=== PATIENT | male | born 1985 | race Caucasian/White ===

== ENCOUNTER 2019-06-05 23:48 | Emergency (ER) | payer SELFPAY ==
[2019-06-05 23:49] VITALS: BMI 28.3
--- NOTE | 2019-06-05 23:51 | PC.NURSE ---
PATIENT STATES HE SHOT UP SOME HEROIN TONIGHT. PATIENT STATES HE HAS USED HEROIN BEFORE BUT NOT FOR A LONG TIME. PATIENT STATES THAT THE LAST THING HE REMEMBERS IS DOING SOMETHING HE SHOULD NOT HAVE BEEN DOING .
[2019-06-05 23:54] VITALS: BP 143/102; PULSE 106; RESP 20; TEMP 36.3; O2SAT 92
--- NOTE | 2019-06-05 23:54 | ECG_ITS ---
Measurements Intervals [place] Rate: 86 P: 54 WV: 163 QRS: 79 QRSD: 114 T: 38 QT: 347 QTc: 416 SINUS RHYTHM INCOMPLETE RIGHT BUNDLE BRANCH BLOCK NONSPECIFIC T-WAVE ABNORMALITY No previous ECG available for comparison Electronically Signed On 06-06-2019 10:29:08 CDT by Kristan Houston M.D. [id number]
--- NOTE | 2019-06-05 23:54 | ED_ITS ---
HPI - Overdose General: Chief Complaint: Overdose Stated Complaint: Heroin OD Time Seen by Provider: 06/05/19 23:49 Source: patient Mode of arrival: ambulatory Limitations: no limitations History of Present Illness: HPI Narrative: Patient comes in for accidental overdose with the use of heroin. Patient reports he had not used heroin in many years and had used tonight. Patient denies being suicidal. Patient was found in a nontoxic state with shallow slow respirations. Police Department had administered 8 mg of naloxone. When EMS got there patient was starting to arouse and having increased in respirations and alertness. Patient is alert and responsive in the emergency department. Patient denies any pain at this time, patient appears unwell. Review of Systems General: Reports: 10 or more systems reviewed and unremarkable except in HPI and below Resp: Reports: shortness of breath (hypoxic) [facility] ED PFSH: Social History Smoking and tobacco status: current every day smoker Physical Exam Const: COMMON NORMALS: no apparent distress and oriented x3 GENERAL APPEARANCE: cooperative HENMT: COMMON NORMALS: normocephalic, external ears normal, EAC's normal, TM's normal bilaterally and external nose normal HEAD & SCALP: normal to inspection and normocephalic FACE & SINUS: normal facial exam NOSE: external nose normal GENERAL EAR: hearing not grossly impaired EXTERNAL E AR: Yes external ears normal EXTERNAL AUDITORY CANAL: EAC's normal TYMPANIC MEMBRANE: TM's normal bilaterally MOUTH: oral and palatal mucosa normal THROAT: posterior oropharynx normal Eye: COMMON NORMALS: PERRL and EOMs intact bilaterally PUPIL: Yes PERRL Neck/C-Spine: COMMON NORMALS: full ROM and no lymphadenopathy Lymph: LYMPHATIC: no lymphedema noted Chest: COMMONS NORMALS: inspection of chest normal and palpation of chest normal Resp: COMMON NORMALS: normal respiratory effort and clear to auscultation bilaterally AUSCULTATION: clear to auscultation bilaterally Cardio: COMMON NORMALS: regular rate and regular rhythm RATE: regular rate RHYTHM: regular rhythm GI: COMMON NORMALS: normal to inspection, nondistended, normoactive bowel joanna nds and non-tender : COMMON NORMALS: Yes no CVA tenderness BLADDER/KIDNEY EXAM: Yes no CVA tenderness Back/Pelvis: COMMON NORMALS: no CVA tenderness and thoracic and lumbar spine normal to inspection Extremity: COMMON NORMALS: normal to inspection GENERAL: No edema Neuro: COMMON NORMALS: oriented x3, moves all extremities and no focal motor deficits Psych: COMMON NORMALS: mental status grossly normal and cooperative Skin: COMMON NORMALS: no rashes or lesions noted GENERAL SKIN EXAM: no rashes or lesions noted Course ED course: 9, reviewed xray with Dr. Machado relating left upper lung vascular congestion. Agreed with concerns, will continue to monitor and consider further treatment. wjw 0120, patient resting well, does get mildly hypoxic after getting up to restroom, but rebounds well. Dr. Machado had talked to Dr. Casillas and we will monitor in the ER for a while with plans to discharge if patient continues to improve. wjw 0245, patient more alert, ambulating without pulse oxygen staying above 94 percent. Patient reports feeling well. wjw Vital Signs: Vital signs: Vital Signs Temperature 97.4 F L 06/05/19 23:54 Pulse Rate 101 H 06/06/19 02:14 Respiratory Rate 15 06/06/19 02:14 Blood Pressure 136/74 06/06/19 02:14 Pulse Oximetry 95 06/06/19 02:14 MDM - Overdose MDM Narrative: Medical decision making narrative: Patient was brought in by EMS for drug overdose. Patient was found by family member and Police Department was notified along with EMS. Police Department arrived first on scene and delivered 2 doses of naloxone at 4 mg apiece. On arrival to the emergency department exam noted alert individual with wet clothes due to diaphoresis. Respirations were even. Patient was hypoxic at 88% on room air. Lung sounds are decreased. Heart rate was regular. Vital signs otherwise were normal. Differential diagnosis includes drug overdose intentional versus accidental, pulmonary edema, aspiration pneumonia. First chest x-ray noted some pulmonary edema. Laboratory values noted creatinine 1.4. Patient was monitored for 3 hours showing improvement in aeration of lung vu on repeat chest x-ray. Patient had increasing activity and pulse oxygen staying above 94% on room air with activity. Patient reported feeling well and was comfortable to go home. Recommended follow-up for evaluation in 1 week, or return to the ER for high fever or increasing shortness of breath. Patient reported understanding and agreed to plan. Lab Data: Labs: Lab Results 06/05/19 06/05/19 06/06/19 Range/Units 23:59 23:59 01:15 WBC 8.6 (4.0-10.0) 10^3/ uL RBC 5.50 H (4.1-5.3) 10^6/u L Hgb 16.6 (11.7-16.6) g/dL Hct 49.6 (42.0-52.0) % MCV 90.2 (80-94) fL MCH 30.2 (28.0-34.0) pg MCHC 33.5 (30.0-36.0) g/dL RDW 12.6 (12.1-15.1) % Plt Count 202 (130-400) 10^3/c mm MPV 8.5 (7.4-10.4) fL Neut % (Auto) 57.6 % Lymph % (Auto) 34.5 % [place] % (Auto) 5.6 % Eos % (Auto) 1.6 % Baso % (Auto) 0.5 % Neut # (Auto) 4.9 (1.8-7.7) 10^3/u L Lymph # (Auto) 3.0 (0.8-4.8) 10^3/u L [place] # (Auto) 0.5 (0.2-0.9) 10^3/u L Eos # (Auto) 0.1 (0.0-0.8) 10^3/u L Baso # (Auto) 0.0 (0.0-0.1) 10^3/u L Nucleated RBC % (a uto) 0 % Nucleated RBCs # 0.0 /100WBC Sodium 136 (136-145) mmol/L Potassium 4.2 (3.5-5.1) mmol/L Chloride 95 L (98-107) mmol/L Carbon Dioxide 31 H (22-29) mmol/L Anion Gap 14.2 (5-19) BUN 20 (6-20) mg/dL Creatinine 1.4 H (0.7-1.2) mg/dL GFR Calculation 57.3 L (90-130) mL/min Glucose 184 H (65-115) mg/dL Calculated Osmolal ity 283 L (285-295) mOsm/k g Calcium 9.8 (8.5-10.5) mg/dL Total Bilirubin 0.4 (0.15-1.2) mg/dL AST 35 (0-40) U/L ALT 35 (0-41) U/L Alkaline Phosphata se 60 (40-130) IU/L Total Protein 7.5 (6.6-8.7) g/dL Albumin 4.3 (3.5-5.2) g/dL Globulin 3.2 (1.3-4.6) g/dL Salicylates < 0.3 L (3-10) mg/dL Urine Opiates Scre en Negative (Negative) ng/mL Acetaminophen < 5.0 L (10-30) ug/mL Ur Barbiturates Sc reen Negative (Negative) ng/mL Ur Phencyclidine S crn Negative (Negative) ng/mL Ur Amphetamines Sc reen Positive H (Negative) ng/mL U Benzodiazepines Scrn Negative (Negative) ng/mL Urine Cocaine Scre en Negative (Negative) ng/mL U Marijuana (THC) Screen Negative (Negative) ng/mL Ethyl Alcohol < 10 (0-10) mg/dL Imaging Data^: CXR: Attestation: I personally reviewed and interpreted this imaging study as follows: (0010, increased vascular congestion left upper lung) Other Xray: Attestation: I personally reviewed and interpreted this imaging study as follows: (repeat CXR, improved aeration with no significant edema) EKG Data^: EKG 1: Attestation: I personally reviewed and interpreted this EKG as follows: (0024, SR, regular rate and rhythm, 86 bpm, no ST elevation or ectopy. wjw) Discharge Plan Discharge Patient Disposition: Home, Self-Care Clinical Impression: Drug overdose Qualifiers: Encounter type: initial encounter Injury intent: accidental or unintentional Qualified Code(s): T50.901A - Poisoning by unspecified drugs, medicaments and biological substances, accidental (unintentional), initial encounter Condition: Stable Prescriptions: No Action No Known Home Medications RF: 0 Discharge Orders: Discharge Order (Routine); Ordered 06/06/19 Ordered By: Jewel Feliciano Discharge Diet: Usual diet Discharge Activity: Increase activity as tolerated Patient Instructions: Narcotic Abuse (ED) Activity Restrictions/Additional Instructions: Activity as tolerated Healthy diet and exercise Follow-up with primary care Return to ER for high fever or difficulty breathing. Coding Level of Care Code ED Engineering Specialist for Norberto Fwd Exam Comprehensive
--- NOTE | 2019-06-05 23:54 | XR_ITS ---
WS: [id number] Portable AP upright chest, 06/06/2019, 2402 hours Clinical Data: hypoxia Comparison: PA and lateral chest, 08/20/2009. Findings: There is a patchy opacity involving the entire left lung. Minimal opacity in the right hilu m may also be present. Most likely this represents a diffuse viral pneumonia. No nodules, masses or e ffusions are seen. The heart is normal. The pulmonary vascularity is not increased. No pneumothorax i s seen. XR/XR chest 1V portable [id number] Impression: Patchy opacity involving left lung and right hilum which could represent acute pneumonia.
[2019-06-06] VITALS (17 sets, daily range): BP systolic 134–156; BP diastolic 74–96; PULSE 94–111; RESP 15–23; O2SAT 86–99
[2019-06-06] MEDS: sodium chloride 0.9% 1,000 ML 999 ML IV (00:10)
[2019-06-06] MEDS: ondansetron 2 mg/ML SDV 2 mL 4 MG IVP ×2 (00:10→00:35)
[2019-06-06 00:16] LABS: Basophils % 0.5 %; Eosinophils # 0.1 10^3/uL (0.0-0.8); Eosinophils % 1.6 %; Hematocrit 49.6 % (42.0-52.0); Hemoglobin 16.6 g/dL (11.7-16.6); Lymphocytes % 34.5 %; Mean Corpuscular HGB Conc 33.5 g/dL (30.0-36.0); Mean Corpuscular Hemoglobin 30.2 pg (28.0-34.0); Mean Corpuscular Volume 90.2 fL (80-94); Mean Platelet Volume 8.5 fL (7.4-10.4); Monocytes # 0.5 10^3/uL (0.2-0.9); Monocytes % 5.6 %; Neutrophils # 4.9 10^3/uL (1.8-7.7); Neutrophils % 57.6 %; Nucleated Red Blood Cells % 0 %; Platelet Count 202 10^3/cmm (130-400); Red Cell Distribution Width 12.6 % (12.1-15.1); White Blood Count 8.6 10^3/uL (4.0-10.0)
[2019-06-06 00:22] LABS: Alanine Aminotransferase 35 U/L (0-41); Albumin Level 4.3 g/dL (3.5-5.2); Alkaline Phosphatase 60 IU/L (40-130); Anion Gap 14.2 (5-19); Aspartate Amino Transferase 35 U/L (0-40); Blood Urea Nitrogen 20 mg/dL (6-20); Calcium 9.8 mg/dL (8.5-10.5); Carbon Dioxide 31 mmol/L (22-29); Chloride 95 mmol/L (98-107); Globulin 3.2 g/dL (1.3-4.6); Glomerular Filtration Rate 57.3 mL/min (90-130); Glucose 184 mg/dL (65-115); Osmolality Calculated 283 mOsm/kg (285-295); Potassium 4.2 mmol/L (3.5-5.1); Sodium 136 mmol/L (136-145); Total Bilirubin 0.4 mg/dL (0.15-1.2); Total Protein 7.5 g/dL (6.6-8.7)
[2019-06-06 00:35] LABS: Acetaminophen < 5.0 ug/mL (10-30); Alcohol Level < 10 mg/dL (0-10); Salicylate < 0.3 mg/dL (3-10)
[2019-06-06 01:36] LABS: Amphetamines Screen Urine Positive (Negative); Barbiturates Screen Urine Negative (Negative); Benzodiazepines Screen Urine Negative (Negative); Cocaine Screen Urine Negative (Negative); Opiate Screen Urine Negative (Negative); PCP Screen Urine Negative (Negative); THC Screen Urine Negative (Negative)
--- NOTE | 2019-06-06 02:02 | XR_ITS ---
WS: [id number] Portable AP upright chest, 06/06/2019, 0229 hours. Clinical Data: pulmonary edema Comparison: Portable chest, 06/06/2019, 2402 hours Findings: The patchy opacities have partially cleared. The opacities probably did represent unusual p ulmonary edema which can be seen with reaction to chemicals or medications.. No nodules, masses or ef fusions are seen. The heart is normal. XR/XR chest 1V portable [id number] Impression: Partial clearing of patchy opacity of left lung and right hilum.
--- NOTE | 2019-06-06 02:18 | PC.NURSE ---
Patient given water after HCP approval.
[2019-06-06] MEDS: acetaminophen 325 mg Tablet 650 MG PO (02:22)
--- NOTE | 2019-06-06 02:24 | PC.NURSE ---
Patient ambulated to bathroom
== END 2019-06-06 02:54 | disposition home or self-care (01) ==
PROVIDERS: Emergency Provider Nurse Practitioner Family
DX: T40.1X1A Poisoning by heroin, accidental (unintentional), initial encounter (principal); R06.02 Shortness of breath; F17.200 Nicotine dependence, unspecified, uncomplicated
CPT/HCPCS: 12345; 36415; 71045; 80053; 80306; 80307; 85025; 93005; 96360; 96361; 96374; 96375; 99284; J2405; J7030

== ENCOUNTER 2020-08-13 13:34 | Emergency (ER) | payer SELFPAY ==
--- NOTE | 2020-08-13 13:38 | XR_ITS ---
WS: [id number] Portable AP upright chest, 08/13/2020 Clinical Data: dyspnea/cough Comparison: Normal chest, 06/06/2019. Findings: No nodules, masses or effusions are seen. The heart is normal. The pulmonary vascularity is not increased. No pneumonia or pneumothorax is seen. Monitor leads are on the chest wall. XR/XR chest 1V portable [id number] Impression: Negative chest.
--- NOTE | 2020-08-13 13:38 | ECG_ITS ---
[facility] Test Date: 2020-08-13 Pat Name: Baldemar Thomas Department: Room: Gender: Male Sheet Turner: : 1985 Requested By: Scout Alvarado Order Number: [id number] Monika MD: Dequan Vega M.D. Measurements Intervals [place] Rate: 81 P: 47 AL: 151 QRS: 44 QRSD: 108 T: 52 QT: 391 QTc: 455 Interpretive Statements SINUS RHYTHM INCOMPLETE RIGHT BUNDLE BRANCH BLOCK [90+ ms QRS DURATION, TERMINAL R IN V1/V2, 40+ ms S IN I/aVL/V4/V5/V6] Compared to ECG 06/06/2019 00:24:57 T-wave abnormality no longer present Electronically Signed On 08-13-2020 18:40:02 CDT by Dequan Vega M.D. [email or web address] [email or web address] Coast Winerysum[facility].Spine Wave/store/OM/[id number]
[2020-08-13 13:39] VITALS: BP 151/88; PULSE 97; RESP 16; TEMP 36.6; O2SAT 100; BMI 24.4
--- NOTE | 2020-08-13 13:40 | W.ED.SOB ---
HPI - SOB/Dyspnea General: Chief Complaint: Overdose Stated Complaint: OVERDOSE Time Seen by Provider: 08/13/20 13:38 History of Present Illness: HPI Narrative: 35-year-old male brought in by EMS after being found unresponsive and cyanotic. He was given Narcan in the field as well as oxygen supplementation is awake and alert on arrival here. He admits to using fentanyl just prior to EMS picking him up. His father called EMS. He has used IV drugs in the past. He used a fentanyl IV about an hour prior to arrival. He is still somewhat lethargic and a little bit confused but able to answer most questions with brief responses. MD elicited complaint: shortness of breath Pertinent past history: other (Acute respiratory failure secondary to IV drug use) Onset (ago): minute(s) Timing: constant Severity: severe Exacerbating factors: recent new medication (IV fentanyl -self administered) Relieving factors: other (Narcan) Known history of: other (IV drug use) Associated symptoms: Deny abdominal pain, chest congestion, chest pain, cough, diaphoresis, dizziness, extremity pain, fever(s), hemoptysis, lightheadedness, myalgias, nausea, orthopnea, palpitations, paresthesias, polydipsia, polyuria, rash, sense of impending doom, syncope or vomiting Treatment prior to arrival: oxygen and other (Narcan) Review of Systems Const: Denies: fever(s) or diaphoresis ENMT: Denies: throat pain, ear or mastoid pain, nasal discharge or nasal congestion Card: Denies: chest pain, palpitations, lightheadedness, syncope or orthopnea Resp: Denies: hemoptysis or chest congestion GI: Denies: abdominal pain, nausea or vomiting : Denies: flank pain, dysuria, urinary frequency or urinary urgency Musc: Denies: extremity pain Skin/Breast: Denies: rash or pruritus Neuro: Denies: dizziness Endo: Denies: polyuria or polydipsia PFS ED PFSH: Social History Smoking and tobacco status: current every day smoker Physical Exam Const: COMMON NORMALS: no acute distress GENERAL APPEARANCE: cooperative and comfortable ORIENTATION/CONSCIOUSNESS: Yes awake HENMT: COMMON NORMALS: normocephalic, atraumatic, hearing grossly normal bilaterally, external ears normal, EAC's normal, TM's normal bilaterally, Normal nasal mucous membranes and turbinates present, moist oral mucous membranes and oropharynx normal HEAD & SCALP: normocephalic and atraumatic NOSE: Normal nasal mucous membranes and turbinates present EXTERNAL EAR: Yes external ears normal EXTERNAL AUDITORY CANAL: EAC's normal TYMPANIC MEMBRANE: TM's normal bilaterally Neck/C-Spine: COMMON NORMALS: no JVD Resp: COMMON NORMALS: normal respiratory effort, No retractions, No use of accessory muscles and clear to auscultation bilaterally AUSCULTATION: clear to auscultation bilaterally Cardio: COMMON NORMALS: no JVD, regular rate, regular rhythm and No murmurs present (Cardio) RATE: regular rate RHYTHM: regular rhythm GI: COMMON NORMALS: Soft to palpation and No hepatosplenomegaly present AUSCULTATION: Yes normoactive bowel sounds PALPATION: Yes Soft to palpation, No Tenderness to palpation present (GI), No Guarding due to palpation present (GI) and Yes No hepatosplenomegaly present Extremity: COMMON NORMALS: normal to inspection, capillary refill normal, no clubbing, cyanosis or edema, no calf tenderness and no pedal edema Skin: COMMON NORMALS: no rashes or lesions noted GENERAL SKIN EXAM: no rashes or lesions noted Course Vital Signs: Vital signs: Vital Signs Temperature 97.8 F 08/13/20 13:39 Pulse Rate 91 08/13/20 15:34 Respiratory Rate 16 08/13/20 15:34 Blood Pressure 123/71 08/13/20 15:34 Pulse Oximetry 97 08/13/20 15:34 MDM - SOB/Dyspnea MDM Narrative: Medical decision making narrative: Patient recovered and awake after multiple doses of Narcan he wishes to go home he is been up and ambulatory without difficulty his sats are good he no longer needs oxygen support we will discharge him home with Narcan intranasal spray as needed should he use again. Strongly discouraged him from using any IV fentanyl or any unknown drug has not been prescribed to him. Likelihood of compliance is low Lab Data: Labs: Lab Results 08/13/20 08/13/20 08/13/20 Range/Units 13:40 14:07 14:07 WBC 6.4 (4.0-10.0) 10^3/ uL RBC 4.91 (4.1-5.3) 10^6/u L Hgb 13.5 (11.7-16.6) g/dL Hct 42.0 (42.0-52.0) % MCV 85.5 (80-94) fL MCH 27.5 L (28.0-34.0) pg MCHC 32.1 (30.0-36.0) g/dL RDW 13.4 (12.1-15.1) % Plt Count 168 (130-400) 10^3/c mm MPV 8.5 (7.4-10.4) fL Neut % (Auto) 76.9 % Lymph % (Auto) 15.4 % [place] % (Auto) 4.1 % Eos % (Auto) 2.5 % Baso % (Auto) 0.8 % Neut # (Auto) 4.93 (1.8-7.7) 10^3/u L Lymph # (Auto) 1.0 (0.8-4.8) 10^3/u L [place] # (Auto) 0.3 (0.2-0.9) 10^3/u L Eos # (Auto) 0.2 (0.0-0.8) 10^3/u L Baso # (Auto) 0.1 (0.0-0.1) 10^3/u L Nucleated RBC % (a uto) 0 % Nucleated RBCs # 0.0 /100WBC Specimen Type Arterial Sample Site Radial, left ABG pH 7.40 (7.35-7.45) ABG pCO2 46.8 H (35-45) mmHg ABG pO2 60.3 L (80.0-100.0) mmH g ABG HCO3 28.9 H (22-26) mmol/L ABG O2 Saturation 92.9 ABG Base Excess 3.3 H (-2.0-2.0) mmol/ L Sivakumar Test Pos A-a O2 Gradient 4.2 L (5-10) mmHg Hematocrit 41.2 L (42-52) % Hgb O2 Saturation 90.4 L (95-100) % Carboxyhemoglobin 2.0 (0.4-20.1) %THgb Methemoglobin 0.7 (0.4-1.5) % Total Hemoglobin 13.4 L (14-18) g/dL Sodium 139.0 138 (131-143) mmol/L Potassium 3.4 L 3.9 (3.5-5.0) mmol/L Glucose 210.0 H 165 H (70-115) mg/dL Ionized Calcium 1.2 (1.1-1.4) mmol/L O2 Delivery Device Room air FiO2 21.0 % Injection Molding Machine Setter ID Cak Chloride 100 (98-107) mmol/L Carbon Dioxide 30 H (22-29) mmol/L Anion Gap 11.9 (5-19) BUN 17 (6-20) mg/dL Creatinine 0.8 (0.7-1.2) mg/dL GFR Calculation 108.8 (90-130) mL/min Calculated Osmolal ity 291 (285-295) mOsm/k g Calcium 8.8 (8.5-10.5) mg/dL Total Bilirubin 0.3 (0.15-1.2) mg/dL AST 32 (0-40) U/L ALT 49 H (0-41) U/L Alkaline Phosphata se 77 (40-130) IU/L Creatine Kinase 184 (39-308) U/L Total Protein 7.3 (6.6-8.7) g/dL Albumin 3.6 (3.5-5.2) g/dL Globulin 3.7 (1.3-4.6) g/dL Discharge Plan Discharge Patient Disposition: Home Clinical Impression: Drug overdose Condition: Stable Prescriptions: New Narcan 4 mg/actuation spray,non-aerosol 1 spray intranasal Q2M PRN (Reason: opioid overdose) Qty: 2 RF: 0 Discharge Orders: Discharge ED (Routine); Ordered 08/13/20 Ordered By: Scout Blum Patient Instructions: Opioid Safety Activity Restrictions/Additional Instructions: Avoid the use of narcotics at night have not been prescribed by a physician Coding Level of Care Code ED Legal Contracts Specialist for Chg Fwd Exam Comprehensive
[2020-08-13 13:51] LABS: ABG PCO2 46.8 mmHg (35-45); Alveolar-Arterial Oxygen Gradi 4.2 mmHg (5-10); Arterial Blood Gas Hematocrit 41.2 % (42-52); Base Excess ABG 3.3 mmol/L (-2.0-2.0); Blood Gas Allen Test Pos; Blood Gas Operator Identificat CAK; Blood Gas Sample Site Radial, left; Blood Gas Sample Type Arterial; HCO3 ABG 28.9 mmol/L (22-26); HGB O2 Sat 90.4 % (95-100); Ionized Calcium Level - ABG 1.2 mmol/L (1.1-1.4); Methemoglobin 0.7 % (0.4-1.5); Oxygen Device ROOM AIR; Oxygen Saturation ABG 92.9; PO2 ABG 60.3 mmHg (80.0-100.0); Potassium Level - ABG 3.4 mmol/L (3.5-5.0); Total Hemoglobin 13.4 g/dL (14-18)
[2020-08-13 14:16] LABS: Basophils # 0.1 10^3/uL (0.0-0.1); Basophils % 0.8 %; Eosinophils # 0.2 10^3/uL (0.0-0.8); Eosinophils % 2.5 %; Hemoglobin 13.5 g/dL (11.7-16.6); Lymphocytes % 15.4 %; Mean Corpuscular HGB Conc 32.1 g/dL (30.0-36.0); Mean Corpuscular Hemoglobin 27.5 pg (28.0-34.0); Mean Corpuscular Volume 85.5 fL (80-94); Mean Platelet Volume 8.5 fL (7.4-10.4); Monocytes # 0.3 10^3/uL (0.2-0.9); Monocytes % 4.1 %; Neutrophils # 4.93 10^3/uL (1.8-7.7); Neutrophils % 76.9 %; Nucleated Red Blood Cells % 0 %; Platelet Count 168 10^3/cmm (130-400); Red Blood Count 4.91 10^6/uL (4.1-5.3); Red Cell Distribution Width 13.4 % (12.1-15.1); White Blood Count 6.4 10^3/uL (4.0-10.0)
[2020-08-13] MEDS: sodium chloride 0.9% 1,000 ML 999 ML IV (14:17)
[2020-08-13 14:19] VITALS: BP 139/88; PULSE 83; RESP 14; O2SAT 94
[2020-08-13] MEDS: naloxone 0.4 mg/ml SDV IVP ×2 (14:21→15:10)
[2020-08-13] MEDS: naloxone 0.4 mg/ml SDV 0.2 MG IVP ×2 (14:31→14:41)
[2020-08-13 14:38] LABS: Alanine Aminotransferase 49 U/L (0-41); Albumin Level 3.6 g/dL (3.5-5.2); Alkaline Phosphatase 77 IU/L (40-130); Anion Gap 11.9 (5-19); Aspartate Amino Transferase 32 U/L (0-40); Blood Urea Nitrogen 17 mg/dL (6-20); Calcium 8.8 mg/dL (8.5-10.5); Carbon Dioxide 30 mmol/L (22-29); Chloride 100 mmol/L (98-107); Creatine Phosphokinase 184 U/L (39-308); Globulin 3.7 g/dL (1.3-4.6); Glomerular Filtration Rate 108.8 mL/min (90-130); Glucose 165 mg/dL (65-115); Osmolality Calculated 291 mOsm/kg (285-295); Potassium 3.9 mmol/L (3.5-5.1); Sodium 138 mmol/L (136-145); Total Bilirubin 0.3 mg/dL (0.15-1.2); Total Protein 7.3 g/dL (6.6-8.7)
[2020-08-13 15:34] VITALS: BP 123/71; PULSE 91; RESP 16; O2SAT 97
--- NOTE | 2020-08-13 15:51 | PC.NURSE ---
Pt ambulates around room w/o difficulty, reported to Dr. Blum.
== END 2020-08-13 16:03 | disposition home or self-care (01) ==
PROVIDERS: Emergency Provider Family Medicine
DX: T40.411A Poisoning by fentanyl or fentanyl analogs, accidental (unintentional), initial encounter (principal); F17.210 Nicotine dependence, cigarettes, uncomplicated
CPT/HCPCS: 36600; 71045; 80051; 80053; 82330; 82550; 82805; 85025; 93005; 96361; 96374; 96376; 99284; J2310; J7030

== ENCOUNTER 2020-12-13 20:12 | Emergency (ER) | payer SELFPAY ==
[2020-12-13] VITALS (7 sets, daily range): BP systolic 122–152; BP diastolic 62–95; PULSE 56–92; RESP 11–20; TEMP 36.9; O2SAT 93–97; BMI 27.6
--- NOTE | 2020-12-13 03:22 | XRR_ITS ---
PROCEDURE INFORMATION: Exam: XR Chest Exam date and time: 12/13/2020 3:22 AM Age: 35 years old Clinical indication: Shortness of breath; Patient HX: Low o2 sats - od; Additional info: Overdose TECHNIQUE: Imaging protocol: XR of the chest. Views: 1 view. Total images: 1 COMPARISON: CR XR chest 1V portable [id number] 08/13/2020 2:09 PM FINDINGS: Lungs: No visible active interstitial or alveolar airspace disease. Pleural spaces: Unremarkable. No pleural effusion. No pneumothorax. Heart/Mediastinum: Cardiac structures and configuration within normal limits. Bones/joints: Unremarkable. XR/XR chest 1V portable [id number] IMPRESSION: Nonacute.
--- NOTE | 2020-12-13 20:24 | ECG_ITS ---
[facility] Test Date: 2020-12-13 Pat Name: Baldemar Thomas Department: Room: Gender: Male Investor Relations Manager: : 1985 Requested By: Elder Padilla Order Number: [id number] Monika MD: JULIANNE FAYE Measurements Intervals [place] Rate: 99 P: 59 SC: 145 QRS: 56 QRSD: 102 T: 62 QT: 340 QTc: 436 Interpretive Statements SINUS RHYTHM WITH SINUS ARRHYTHMIA INCOMPLETE RIGHT BUNDLE BRANCH BLOCK [90+ ms QRS DURATION, TERMINAL R IN V1/V2, 40+ ms S IN I/aVL/V4/V5/V6] Compared to ECG 08/13/2020 14:06:10 No significant changes Electronically Signed On 12-14-2020 20:20:15 CDT by JULIANNE FAYE [email or web address].[employer]/store/NU/[id number] f
--- NOTE | 2020-12-13 20:38 | ED_ITS ---
HPI - Overdose General: Chief Complaint: Overdose Stated Complaint: Overdose Time Seen by Provider: 12/13/20 20:19 History of Present Illness: HPI Narrative: 35-year-old male who says he went to a green party yesterday with some friends at home. He believes it was around noon. There were multiple substances involved including cocaine, ecstasy, and opioids. He said it went on until around 4 AM this morning. He likely then passed out, and woke up. He says he was feeling okay, but then has episodes of blacking out that are short episodes throughout the day. This is what is concerning him more than anything. No vomiting. complaint: accidental overdose Onset (ago): hour(s) Review of Systems Const: Reports: body aches; Denies: fever(s) or chills Eyes: Reports: blurry vision Card: Denies: chest pain or palpitations Resp: Denies: dyspnea, productive cough or non-productive cough GI: Reports: nausea; Denies: abdominal pain or vomiting Neuro: Reports: dizziness and confusion; Denies: headache(s) Psych: Denies: visual hallucinations, auditory hallucinations, suicidal ideation or homicidal ideation [facility] ED PFSH: Social History Smoking and tobacco status: current every day smoker Physical Exam Const: COMMON NORMALS: no acute distress GENERAL APPEARANCE: lethargic; not frail appearing ORIENTATION/CONSCIOUSNESS: Yes oriented to person, Yes oriented to place, Yes oriented to time and Yes lethargic HENMT: COMMON NORMALS: normocephalic and atraumatic HEAD & SCALP: normocephalic and atraumatic Chest: Breast/axilla inspection: Yes no chest deformity, asymmetry, normal contours, no nodules, masses, tenderness Resp: COMMON NORMALS: clear to auscultation bilaterally EFFORT & INSPECTION: Yes abnormal respiratory pattern (Slow/hypopnea) and No retractions AUSCULTATION: clear to auscultation bilaterally Cardio: COMMON NORMALS: regular rate and regular rhythm RATE: regular rate RHYTHM: regular rhythm GI: COMMON NORMALS: Normal to inspection, nondistended, normoactive bowel sounds present and Soft to palpation PALPATION: Yes Soft to palpation Neuro: SENSORIUM/ORIENTATION: Yes oriented to person, Yes oriented to place, Yes oriented to time and Yes lethargic Course Vital Signs: Vital signs: Vital Signs Temperature 98.4 F 12/13/20 20:42 Pulse Rate 55 L 12/14/20 02:30 Respiratory Rate 12 12/14/20 02:30 Blood Pressure 116/70 12/14/20 02:30 Pulse Oximetry 98 12/14/20 02:30 MDM - Overdose MDM Narrative: Medical decision making narrative: 35-year-old male with accidental illicit substance overdose. BUN is slightly elevated. He appears dry on exam. CBC is normal. Urinalysis benign. Urine drug screen is positive for amphetamines and marijuana. Fentanyl was likely involved as well. His pupils are small on exam. He is more awake now than prior. Saturations have improved. Blood pressure 120/60 heart rate 74. His CK is 2300. Likely from amphetamine use. He has received 3 L for this in the ER. His creatinine is normal. He will be allowed home. As before, he will be given a prescription for intranasal Narcan. He is advised to stop using illicit substances . also as before, his compliance will likely be low. Lab Data: Labs: Lab Results 12/13/20 12/13/20 12/13/20 20:25 20:25 20:25 WBC 9.9 10^3/uL 10^3/ uL (4.0-10.0) RBC 5.20 10^6/uL 10^6 /uL (4.1-5.3) Hgb 15.2 g/dL g/dL (11.7-16.6) Hct 43.9 % % (42.0-52.0) MCV 84.4 fl fl (80-94) MCH 29.2 pg pg (28.0-34.0) MCHC 34.6 g/dL g/dL (30.0-36.0) RDW 12.5 % % (12.1-15.1) Plt Count 210 10^3/cmm 10^3 /cmm (130-400) MPV 8.1 fL fL (7.4-10.4) Neut % (Auto) 62.1 % % Lymph % (Auto) 25.7 % % Morrison % (Auto) 8.8 % % Eos % (Auto) 2.3 % % Baso % (Auto) 0.9 % % Neut # (Auto) 6.18 10^3/uL 10^3 /uL (1.8-7.7) Lymph # (Auto) 2.6 10^3/uL 10^3/ uL (0.8-4.8) Morrison # (Auto) 0.9 10^3/uL 10^3/ uL (0.2-0.9) Eos # (Auto) 0.2 10^3/uL 10^3/ uL (0.0-0.8) Baso # (Auto) 0.1 10^3/uL 10^3/ uL (0.0-0.1) Nucleated RBC % (a uto) 0 % % Nucleated RBCs # 0.0 /100WBC /100W BC Sodium 135 mmol/L L mmol /L (136-145) Potassium 3.8 mmol/L mmol/L (3.5-5.1) Chloride 97 mmol/L L mmol/ L (98-107) Carbon Dioxide 27 mmol/L mmol/L (22-29) Anion Gap 14.8 (5-19) BUN 27 mg/dL H mg/dL (6-20) Creatinine 0.9 mg/dL mg/dL (0.7-1.2) GFR Calculation 95.0 mL/min mL/mi n (90-130) Glucose 123 mg/dL H mg/dL (65-115) Calculated Osmolal ity 286 mOsm/kg mOsm/ kg (285-295) Calcium 9.2 mg/dL mg/dL (8.5-10.5) Total Bilirubin 0.5 mg/dL mg/dL (0.15-1.2) AST 98 U/L H U/L (0-40) ALT 94 U/L H U/L (0-41) Alkaline Phosphata se 85 IU/L IU/L (40-130) Creatine Kinase 2381 U/L H* U/L (39-308) Total Protein 7.9 g/dL g/dL (6.6-8.7) Albumin 4.3 g/dL g/dL (3.5-5.2) Globulin 3.6 g/dL g/dL (1.3-4.6) Urine Color Yellow (Yellow) Urine Appearance Clear (CLEAR) Urine pH 5 (5-7) Ur Specific Gravit y 1.025 (1.005-1.030) Urine Protein Neg (Negative) Urine Glucose (UA) Norm (Normal) Urine Ketones Negative (Negative) Urine Blood Neg (Negative) Urine Nitrate Negative (Negative) Urine Bilirubin Neg (Negative) Urine Urobilinogen Norm mg/dL mg/dL (Negative) Ur Leukocyte Mayra ase Negative (Negative) Salicylates < 0.3 mg/dL L mg/ dL (3-10) Urine Opiates Scre en Acetaminophen < 5.0 ug/mL L ug/ mL (10-30) Ur Barbiturates Sc reen Ur Phencyclidine S crn Ur Amphetamines Sc reen U Benzodiazepines Scrn Urine Cocaine Scre en U Marijuana (THC) Screen Ethyl Alcohol < 10 mg/dL mg/dL (0-10) 12/13/20 20:25 WBC RBC Hgb Hct MCV MCH MCHC RDW Plt Count MPV Neut % (Auto) Lymph % (Auto) Morrison % (Auto) Eos % (Auto) Baso % (Auto) Neut # (Auto) Lymph # (Auto) Morrison # (Auto) Eos # (Auto) Baso # (Auto) Nucleated RBC % (a uto) Nucleated RBCs # Sodium Potassium Chloride Carbon Dioxide Anion Gap BUN Creatinine GFR Calculation Glucose Calculated Osmolal ity Calcium Total Bilirubin AST ALT Alkaline Phosphata se Creatine Kinase Total Protein Albumin Globulin Urine Color Urine Appearance Urine pH Ur Specific Gravit y Urine Protein Urine Glucose (UA) Urine Ketones Urine Blood Urine Nitrate Urine Bilirubin Urine Urobilinogen Ur Leukocyte Mayra ase Salicylates Urine Opiates Scre en Negative ng/mL ng /mL (Negative) Acetaminophen Ur Barbiturates Sc reen Negative ng/mL ng /mL (Negative) Ur Phencyclidine S crn Negative ng/mL ng /mL (Negative) Ur Amphetamines Sc reen Positive ng/mL H ng/mL (Negative) U Benzodiazepines Scrn Negative ng/mL ng /mL (Negative) Urine Cocaine Scre en Negative ng/mL ng /mL (Negative) U Marijuana (THC) Screen Positive ng/mL H ng/mL (Negative) Ethyl Alcohol Discharge Plan Discharge Patient Disposition: Home Clinical Impression: Drug overdose Qualifiers: Encounter type: initial encounter Injury intent: accidental or unintentional Qualified Code(s): T50.901A - Poisoning by unspecified drugs, medicaments and biological substances, accidental (unintentional), initial encounter Condition: Stable Prescriptions: Continued Narcan 4 mg/actuation spray,non-aerosol 1 spray intranasal Q2M PRN (Reason: opioid overdose) Qty: 2 RF: 0 Discharge Orders: Discharge ED (Routine); Ordered 12/13/20 Ordered By: Elder Armijo Patient Instructions: Methamphetamine Abuse (ED), Adult Overdose (ED), Opioid Safety Coding Level of Care Code ED Clock And Watch Hands Dipper for Chg Fwd Exam Detailed
[2020-12-13 20:52] LABS: Add Urine Microscopic? NO; Charge for UA Resulting for Rev
[2020-12-13 20:53] LABS: Basophils # 0.1 10^3/uL (0.0-0.1); Basophils % 0.9 %; Bilirubin Urine Neg (Negative); Blood Urine Neg (Negative); Eosinophils # 0.2 10^3/uL (0.0-0.8); Eosinophils % 2.3 %; Glucose Urine UA Norm (Normal); Hematocrit 43.9 % (42.0-52.0); Hemoglobin 15.2 g/dL (11.7-16.6); Ketones Urine Negative (Negative); Leukocyte Esterase Urine Negative (Negative); Lymphocytes # 2.6 10^3/uL (0.8-4.8); Lymphocytes % 25.7 %; Mean Corpuscular HGB Conc 34.6 g/dL (30.0-36.0); Mean Corpuscular Hemoglobin 29.2 pg (28.0-34.0); Mean Corpuscular Volume 84.4 fl (80-94); Mean Platelet Volume 8.1 fL (7.4-10.4); Monocytes # 0.9 10^3/uL (0.2-0.9); Monocytes % 8.8 %; Neutrophils # 6.18 10^3/uL (1.8-7.7); Neutrophils % 62.1 %; Nitrate Urine Negative (Negative); Nucleated Red Blood Cells % 0 %; Platelet Count 210 10^3/cmm (130-400); Protein Urine Neg (Negative); Red Cell Distribution Width 12.5 % (12.1-15.1); Specific Gravity, Urine 1.025 (1.005-1.030); Urine Appearance Clear (CLEAR); Urine Color Yellow (Yellow); Urobilinogen Urine Norm (Negative); White Blood Count 9.9 10^3/uL (4.0-10.0); pH Urine 5 (5-7)
[2020-12-13] MEDS: sodium chloride 0.9% 1,000 ML 999 ML IV ×3 (21:00→22:37)
[2020-12-13 21:03] LABS: Amphetamines Screen Urine Positive (Negative); Barbiturates Screen Urine Negative (Negative); Benzodiazepines Screen Urine Negative (Negative); Cocaine Screen Urine Negative (Negative); Opiate Screen Urine Negative (Negative); PCP Screen Urine Negative (Negative); THC Screen Urine Positive (Negative)
[2020-12-13 21:18] LABS: Alanine Aminotransferase 94 U/L (0-41); Albumin Level 4.3 g/dL (3.5-5.2); Alkaline Phosphatase 85 IU/L (40-130); Blood Urea Nitrogen 27 mg/dL (6-20); Calcium 9.2 mg/dL (8.5-10.5); Carbon Dioxide 27 mmol/L (22-29); Chloride 97 mmol/L (98-107); Globulin 3.6 g/dL (1.3-4.6); Glucose 123 mg/dL (65-115); Osmolality Calculated 286 mOsm/kg (285-295); Sodium 135 mmol/L (136-145); Total Bilirubin 0.5 mg/dL (0.15-1.2); Total Protein 7.9 g/dL (6.6-8.7)
[2020-12-13 21:24] LABS: Acetaminophen < 5.0 ug/mL (10-30); Alcohol Level < 10 mg/dL (0-10); Salicylate < 0.3 mg/dL (3-10)
[2020-12-13 21:25] LABS: Anion Gap 14.8 (5-19); Potassium 3.8 mmol/L (3.5-5.1)
[2020-12-13 21:30] LABS: Aspartate Amino Transferase 98 U/L (0-40)
[2020-12-13 21:33] LABS: Creatine Phosphokinase 2381 U/L (39-308)
[2020-12-14] VITALS (13 sets, daily range): BP systolic 111–132; BP diastolic 48–73; PULSE 51–65; RESP 12–18; O2SAT 93–99
== END 2020-12-14 06:15 | disposition home or self-care (01) ==
PROVIDERS: Emergency Provider Emergency Medicine
DX: T40.5X1A Poisoning by cocaine, accidental (unintentional), initial encounter (principal); T43.641A Poisoning by ecstasy, accidental (unintentional), initial encounter; T40.2X1A Poisoning by other opioids, accidental (unintentional), initial encounter; F17.210 Nicotine dependence, cigarettes, uncomplicated
CPT/HCPCS: 71045; 80053; 80306; 80307; 81003; 82550; 85025; 93005; 96360; 96361; 99284; J7030

== ENCOUNTER 2022-05-05 14:53 | Emergency (ER) | payer MEDICAID, SELFPAY ==
[2022-05-05 15:18] VITALS: BP 137/82; PULSE 67; RESP 16; TEMP 37.2; O2SAT 97
--- NOTE | 2022-05-05 15:28 | XRR_ITS ---
PROCEDURE INFORMATION: Exam: XR Chest Exam date and time: 05/05/2022 5:00 PM Age: 37 years old Clinical indication: Cough TECHNIQUE: Imaging protocol: Radiologic exam of the chest. Views: 1 view. COMPARISON: CR XR chest 1V portable [id number] 06/06/2019 2:21 AM FINDINGS: Lungs: Unremarkable. No consolidation. Pleural spaces: Unremarkable. No pleural effusion. No pneumothorax. Heart/Mediastinum: Unremarkable. No cardiomegaly. Bones/joints: Unremarkable. XR/XR chest 1V portable [id number] IMPRESSION: No acute findings.
--- NOTE | 2022-05-05 16:42 | ED_ITS ---
HPI - Fever General: Chief Complaint: Fever Stated Complaint: Fever, Cough, Mucus buildup Time Seen by Provider: 05/05/22 16:42 History of Present Illness: Mr. Thomas is a 37-year-old gentleman with history of smoking presenting to the emergency department for cough and fevers. He re ports cough and generalized malaise now for few weeks. Over the past few days he has had fevers, does note congestion, mildly productive cough, generalized malaise. He has had poor appetite. Intensity symptoms is moderate. Course has persisted. No other specific changes in health, exacerbating, or alleviating factors identified. Onset (ago): week(s) Exacerbating factors: nothing Relieving factors: nothing Associated symptoms: Reports cough, nausea and other Review of Systems General: Reports: 10 or more systems reviewed and unremarkable except in HPI and below GI: Reports: nausea PFSH ED PFSH: Medical History (Updated 05/13/22 @ 00:00 by SARIAH Holden) No significant past medical history Surgical History (Updated 05/05/22 @ 16:58 by Jaylon Ramos MD) No significant past surgical history Social History Smoking and tobacco status: current every day smoker Physical Exam Const: COMMON NORMALS: alert GENERAL APPEARANCE: cooperative and well developed HENMT: COMMON NORMALS: normocephalic and atraumatic HEAD & SCALP: normocephalic and atraumatic Eye: COMMON NORMALS: conjunctivae normal CONJUNCTIVA: Yes conjunctivae normal SCLERA: sclerae normal Neck/C-Spine: COMMON NORMALS: supple GENERAL: Yes trachea midline Resp: COMMON NORMALS: clear to auscultation bilaterally EFFORT & INSPECTION: Yes able to speak in complete sentences AUSCULTATION: clear to auscultation bilaterally Cardio: COMMON NORMALS: regular rate and regular rhythm RATE: regular rate RHYTHM: regular rhythm GI: COMMON NORMALS: Soft to palpation PALPATION: Yes Soft to palpation and No Tenderness to palpation present (GI) Extremity: GENERAL: Yes normal exam except as noted and No edema Neuro: COMMON NORMALS: moves all extremities SENSORIUM/ORIENTATION: Yes alert and No Orientation impaired Psych: COMMON NORMALS: mental status grossly normal and Normal thought process present THOUGHT PROCESS: Normal thought process present Course Vital Signs: Vital signs: Vital Signs Temperature 99.0 F 05/05/22 15:18 Pulse Rate 71 05/05/22 17:38 Respiratory Rate 16 05/05/22 17:38 Blood Pressure 128/70 05/05/22 17:38 Pulse Oximetry 98 05/05/22 17:38 Oxygen Delivery Me thod 05/05/22 16:49 MDM - Fever Medical Decision Making 37-year-old gentleman presenting to the emergency department for respiratory symptoms and fever. Exam as above. Patient is nontoxic. Rapid viral testing is negative. Chest x-ray with no lobar consolidation or pneumothorax. Symptoms most consistent with bronchitis, patient does have a history of smoking and will be treated. The results of ED evaluation were discussed with the patient including prescriptions and/or symptomatic cares (if applicable) including appropriate and responsible use, followup plan, and return precautions. The patient verbalized understanding and felt safe for discharge. Medical Records I reviewed the patient's medical records. Lab Data I reviewed the patient's lab results. Radiology Impressions Chest X-Ray 05/05/22 15:28 IMPRESSION: No acute findings. Laboratory Results Influenza Type A Ag negative (Negative) 05/05/22 16:42 Influenza Type B Ag negative (Negative) 05/05/22 16:42 SARS-CoV-2 Ag (Rapid) negative (Negative) 05/05/22 16:42 Discharge Plan Discharge Patient Disposition: Home Clinical Impression: Bronchitis, Fever, Productive cough Condition: Stable Prescriptions: New doxycycline hyclate 100 mg capsule 100 mg PO BID 10 Days Qty: 20 0RF albuterol sulfate 90 mcg/actuation HFA aerosol inhaler 2 inh inhalation Q4H PRN (Reason: shortness of breath or wheezing) Qty: 8.5 0 RF No Action Narcan 4 mg/actuation spray,non-aerosol 1 spray intranasal Q2M PRN (Reason: opioid overdose) Qty: 2 0RF Rx Instructions: spray 1 dose into ONE nostril; alternate nostrils w each dose until help arrives Discharge Orders: Discharge ED (Routine); Ordered 05/05/22 Ordered By: Jaylon Ramos Discharge Diet: Usual diet Discharge Activity: Resume usual activity Patient Instructions: Acute Bronchitis (ED), COPD (Chronic Obstructive Pulmonary Disease) (ED) Activity Restrictions/Additional Instructions: Thank you for visiting the emergency department. You were seen and evaluated for cough with fever and generalized illness. The exact cause of your symptoms is unclear though may be related to atypical pneumonia or bronchitis. I will prescribe steroids and antibiotics. Please also use your albuterol metered-dose inhaler 2 puffs every 4 hours for 24 hours followed by 2 puffs every 6 hours for 24 hours followed by 2 puffs every 8 hours for 24 hours and then return to the normal schedule. I would expect improvement in the next few days. Please follow-up with a primary care provider. Return to the emergency department for worsening symptoms or anything else that you are concerned about and feel needs emergency department evaluation. Coding Level of Care Code ED First Aid Attendant for Norberto Viera
[2022-05-05 16:49] VITALS: PULSE 75; RESP 14; O2SAT 98
[2022-05-05 17:19] LABS: Influenza A by IFA negative (Negative); Influenza B by IFA negative (Negative); SARS Covid-2 Antigen negative (Negative)
[2022-05-05 17:38] VITALS: BP 128/70; PULSE 71; RESP 16; O2SAT 98
== END 2022-05-05 17:38 | disposition home or self-care (01) ==
PROVIDERS: Emergency Provider Emergency Medicine
DX: J40 Bronchitis, not specified as acute or chronic (principal); Z20.822 Contact with and (suspected) exposure to COVID-19; F17.210 Nicotine dependence, cigarettes, uncomplicated
CPT/HCPCS: 71045; 87426; 87804; 99283

== ENCOUNTER 2022-06-30 17:14 | Inpatient (IN) | payer MEDICAID, SELFPAY ==
[2022-06-30] VITALS (13 sets, daily range): BP systolic 112–171; BP diastolic 69–108; PULSE 59–114; RESP 14–20; TEMP 36.8; O2SAT 92–99; BMI 24.3
--- NOTE | 2022-06-30 17:43 | ED.C_ITS ---
HPI - Psych General: Chief Complaint: Psychiatric Symptoms Stated Complaint: SI Time Seen by Provider: 06/30/22 17:21 History of Present Illness: Patient with an extensive history of drug use and Tourette's syndrome presents to the emergency department with family due to suicidal ideation over the last several months with multiple suicide attempts over the last few days. Patient s tates that he has been on and off of drugs since he was 24 starting with snorting oxycodone and then escalating to smoking heroin and then injecting heroin. He has had multiple periods of sobriety, but over the past year has significantly increased his drug use mostly fentanyl, black tar heroin, or oxycodone via IV injection into his left antecubital vein. Patient states that he uses $20-$60 worth of drugs per day via IV injection. He states multiple recent stressors including getting from his ex- and being unable to afford living in [facility] where his children are located and moving here to [place]. He endorses a suicide attempt 4 days ago by running into the highway trying to get hit by a car. He also endorses a separate suicide attempt 2 days ago intentionally overdosing on fentanyl, however the hannah he was using with gave him Narcan. He states that while he has had suicidal ideation over the last several months he has never attempted suicide aside from these 2 times. He states that over the past week he has been taking excessive and unnecessary risks and has been ambivalent to dying including driving at 120 miles an hour. Patient does endorse desire to hurt other people, not specifically to kill them. He states that he does not have a specific target but looks for people that he can justify hurting while he is hanging out at bars, specifically men who are abusing women or bullies. Patient denies any auditory hallucinations, however he does endorse visual hallucinations of the gram reaper while he is laying in bed at night. Patient denies any prior suicide attempts, prior inpatient or outpatient psychiatric care, however he has been in an outpatient addiction center in the past. He states that he was previously on Subutex 8 mg twice bogdan ly with prolonged sobriety however he lost his medication and never got it refilled. Patient states that aside from opiates he uses methamphetamine and cocaine occasionally especially in combination with opiates. He denies any marijuana use because he is on probation and is concerned that we will be detected on a drug screen. He states that he smokes half a pack of cigarettes per day which is started over the last year, and drinks alcohol 6 occasionally for social situations only. No other modifying factors, no other associated symptoms. Associated symptoms: Deny delusions Review of Systems General: Reports: 10 or more systems reviewed and unremarkable except in HPI and below PFSH ED PFSH: Medical History (Updated 06/30/22 @ 20:22 by Perfecto Myers DO) No significant past medical history Surgical History (Updated 05/05/22 @ 16:58 by Jaylon Ramos MD) No significant past surgical history Social History Smoking and tobacco status: current every day smoker Physical Exam Const: COMMON NORMALS: patient oriented x3 GENERAL APPEARANCE: cooperative, anxious and appears older than stated age ORIENTATION/CONSCIOUSNESS: Yes awake HENMT: COMMON NORMALS: normocephalic, atraumatic, hearing grossly normal bilaterally, external ears normal and Normal external nose present HEAD & SCALP: normocephalic and atraumatic FACE & SINUS: normal facial exam NOSE: Normal external nose present EXTERNAL EAR: Yes external ears normal MOUTH: Normal oral and palatal mucosa present THROAT: posterior oropharynx normal Eye: COMMON NORMALS: Equal, round and reactive pupils present and EOMs intact bilaterally PUPIL: Yes Equal, round and reactive pupils present Neck/C-Spine: COMMON NORMALS: supple GENERAL: Yes normal visual inspection CERVICAL SPINE: No Cervical spine tenderness and No step off deformity Chest: COMMONS NORMALS: normal inspection of the chest Resp: COMMON NORMALS: normal respiratory effort, No retractions, No use of accessory muscles and clear to auscultation bilaterally AUSCULTATION: clear to auscultation bilaterally Cardio: COMMON NORMALS: regular rhythm and Peripheral pulses 2+ throughout RATE: tachycardic RHYTHM: regular rhythm PERIPHERAL PULSES: Peripheral pulses 2+ throughout GI: COMMON NORMALS: Normal to inspection, nondistended, normoactive bowel sounds present, Soft to palpation and non-tender PALPATION: Yes Soft to palpation : COMMON NORMALS: Yes no CVA tenderness BLADDER/KIDNEY EXAM: Yes no CVA tenderness Back/Pelvis: COMMON NORMALS: no CVA tenderness and thoracic and lumbar spine normal to inspection THORACIC SPINE/UPPER BACK: Yes normal to inspection LUMBAR SPINE/LOWER BACK: Yes normal to inspection Extremity: COMMON NORMALS: normal to inspection and full ROM GENERAL: No clubbing and No cyanosis Neuro: COMMON NORMALS: patient oriented x3, moves all extremities, no focal motor deficits and no sensory deficits noted Psych: ATTITUDE: Yes Withdrawn affect present, Yes evasive and Yes Guarded attititude/behavior present ACTIVITY/MOTOR BEHAVIOR: Yes fidgeting, Yes hyperactivity, Yes restless and Yes Avoids eye contact (attititude/behavior) SPEECH: Yes minimal, Yes slow and Yes soft MOOD & AFFECT: Yes depressed mood, Yes anxious, Yes tearful and Yes Blunted affect present THOUGHT CONTENT: Yes Suicidality present, Yes Homicidality present, No Phobia(s) present, No d elusions, Yes Hallucination(s) present visual; not auditory, Yes Ideas of reference present (thought content) and Yes Derealization present INSIGHT: Fair insight present (Psych) JUDGEMENT: Poor judgement present (Psych) Skin: GENERAL SKIN EXAM: other (Track meier left arm) Course Reevaluation(s): Reevaluation #1: Advised by nursing that while the patient once in the bathroom getting changed into his paper scrubs he states that he snorted the rest of the fentanyl he had. Patient's belongings have been confiscated, he will be monitored, will receive Suboxone. Time: 17:47 Reevaluation #2: Immediately upon going into the room to evaluate the patient another doctor was at bedside, the patient was unresponsive, apneic, with questionable pulse. [id number] ventilation was started, and chest compressions were performed. Narcan was brought to bedside and the patient was given an intra sublingual injection of Narcan. Plans were made to intubate the patient, however shortly after receiving the Narcan the patient woke up. Nursing primer supervisor has been made aware of the incident, the bathroom was searched and a spoon and use needle were found in the trash. Time: 17:48 Consultations: Consultation #1: Spoke with psychiatry Dr. Menendez, extensive discussion of the patient's case, he excepted the patient for admission. Time: 20:22 Vital Signs: Vital signs: Vital Signs Temperature 98.2 F 06/30/22 17:22 Pulse Rate 61 06/30/22 22:29 Respiratory Rate 14 06/30/22 22:29 Blood Pressure 124/78 06/30/22 22:29 Pulse Oximetry 99 06/30/22 22:29 Oxygen Delivery Me thod Room Air 06/30/22 22:00 MDM - Psych Medical Decision Making Concern for suicidal ideation with several recent active suicide attempts as well as passive suicidal behavior. Will obtain screening psychiatric laboratory studies and plan for inpatient psychiatric admission. Patient was offered and accepted Suboxone here in the emergency department, will start him on induction dose of 16 mg and plan for 8 mg twice daily. Lab Data 06/30/22 18:25 06/30/22 18:25 Radiology Impressions Chest X-Ray 06/30/22 18:00 IMPRESSION: No acute cardiopulmonary abnormality. Laboratory Results WBC 10.4 10^3/uL (4.0-10.0) H 06/30/22 18: RBC 4.69 10^6/uL (4.1-5.3) 06/30/22 18: Hgb 13.5 g/dL (11.7-16.6) 06/30/22 18: Hct 40.7 % (42.0-52.0) L 06/30/22 18: MCV 86.8 fl (80-94) 06/30/22 18: MCH 28.8 pg (28.0-34.0) 06/30/22 18: MCHC 33.2 g/dL (30.0-36.0) 06/30/22 18: RDW 13.2 % (12.1-15.1) 06/30/22 18: Plt Count 160 10^3/cmm (130-400) 06/30/22 18: MPV 8.3 fL (7.4-10.4) 06/30/22 18: Neut % (Auto) 74.4 % 06/30/22 18: Lymph % (Auto) 15.3 % 06/30/22 18: Josephine % (Auto) 8.7 % 06/30/22 18: Eos % (Auto) 0.8 % 06/30/22 18: Baso % (Auto) 0.4 % 06/30/22 18: Neut # (Auto) 7.72 10^3/uL (1.8-7.7) H 06/30/22 18: Lymph # (Auto) 1.6 10^3/uL (0.8-4.8) 06/30/22 18:25 Josephine # (Auto) 0.9 10^3/uL (0.2-0.9) 06/30/22 18:25 Eos # (Auto) 0.1 10^3/uL (0.0-0.8) 06/30/22 18:25 Baso # (Auto) 0.0 10^3/uL (0.0-0.1) 06/30/22 18:25 Nucleated RBC % (auto) 0 % 06/30/22 18:25 Nucleated RBCs # 0.0 /100WBC 06/30/22 18:25 Sodium 139 mmol/L (136-145) 06/30/22 18:25 Potassium 3.9 mmol/L (3.5-5.1) 06/30/22 18:25 Chloride 103 mmol/L (98-107) 06/30/22 18:25 Carbon Dioxide 26 mmol/L (22-29) 06/30/22 18:25 Anion Gap 13.9 (5-19) 06/30/22 18:25 BUN 11 mg/dL (6-20) 06/30/22 18:25 Creatinine 1.1 mg/dL (0.7-1.2) 06/30/22 18:25 GFR Calculation 74.5 mL/min (90-130) L 06/30/22 18:25 Glucose 116 mg/dL (65-115) H 06/30/22 18:25 Calculated Osmolality 288 mOsm/kg (285-295) 06/30/22 18:25 Calcium 8.9 mg/dL (8.5-10.5) 06/30/22 18:25 Total Bilirubin 0.4 mg/dL (0.15-1.2) 06/30/22 18:25 AST 24 U/L (0-40) 06/30/22 18:25 ALT 25 U/L (0-41) 06/30/22 18:25 Alkaline Phosphatase 75 U/L (40-130) 06/30/22 18:25 Total Protein 7.8 g/dL (6.6-8.7) 06/30/22 18:25 Albumin 4.0 g/dL (3.5-5.2) 06/30/22 18:25 Globulin 3.8 g/dL (1.3-4.6) 06/30/22 18:25 TSH 2.09 uIU/mL (0.27-4.20) 06/30/22 18:25 Urine Color Yellow (Yellow) 06/30/22 18:00 Urine Appearance Cloudy (CLEAR) A 06/30/22 18:00 Urine pH 8 (5-7) H 06/30/22 18:00 Ur Specific [place] 1.020 (1.005-1.030) 06/30/22 18:00 Urine Protein Neg (Negative) 06/30/22 18:00 Urine Glucose (UA) Norm (Normal) 06/30/22 18:00 Urine Ketones Negative (Negative) 06/30/22 18:00 Urine Blood Neg (Negative) 06/30/22 18:00 Urine Nitrate Negative (Negative) 06/30/22 18:00 Urine Bilirubin Neg (Negative) 06/30/22 18:00 Prot Sulfosalicylic Acd Positive (Negative) 06/30/22 18:00 Urine Urobilinogen Norm mg/dL (Negative) 06/30/22 18:00 Ur Leukocyte Esterase Negative (Negative) 06/30/22 18:00 Urine RBC 0-4 /hpf (0-2) H 06/30/22 18:00 Urine WBC 0-4 /hpf (0-5) H 06/30/22 18:00 Ur Squamous Epith Cells 0-4 /hpf (0-5) H 06/30/22 18:00 Amorphous Sediment 3+ /hpf 06/30/22 18:00 Urine Bacteria Trace /hpf (NONE) 06/30/22 18:00 Hyaline Casts 0-4 /lpf H 06/30/22 18:00 Coarse Granular Casts Rare /lpf 06/30/22 18:00 Urine Mucus Trace /hpf 06/30/22 18:00 Salicylates < 0.3 mg/dL (3-10) L 06/30/22 18:25 Urine Opiates Screen Positive ng/mL (Negative) H 06/30/22 18:00 Acetaminophen < 5.0 ug/mL (10-30) L 06/30/22 18:25 Ur Barbiturates Screen Negative ng/mL (Negative) 06/30/22 18:00 Ur Phencyclidine Scrn Negative ng/mL (Negative) 06/30/22 18:00 Ur Amphetamines Screen Positive ng/mL (Negative) H 06/30/22 18:00 U Benzodiazepines Scrn Negative ng/mL (Negative) 06/30/22 18:00 Urine Cocaine Screen Negative ng/mL (Negative) 06/30/22 18:00 U Marijuana (THC) Screen Negative ng/mL (Negative) 06/30/22 18:00 Ethyl Alcohol < 10 mg/dL (0-10) 06/30/22 18:25 SARS-CoV-2 Ag (Rapid) negative (Negative) 06/30/22 18:20 Critical Care Time Critical Care Time: Critical Care Time: Yes Total Critical Care Time: 37 Attestation: This case had a high probability of a clinically significant, sudden, or life threatening deterioration of this patient's condition which required my full and direct attention, intervention and personal management. Discharge Plan Discharge Patient Disposition: Admitted As Inpatient Admit Provider: Jin Menendez Clinical Impression: Suicide attempt by drug overdose, Suicidal ideation, Suicide attempt, Drug addiction Condition: Stable Coding Level of Care Code ED Clutch Operator for Norberto Viera
--- NOTE | 2022-06-30 18:00 | XRR_ITS ---
PROCEDURE INFORMATION: Exam: XR Chest Exam date and time: 06/30/2022 6:26 PM Age: 37 years old Clinical indication: Pain; Chest pressure; Additional info: S/P cpr TECHNIQUE: Imaging protocol: Radiologic exam of the chest. Views: 1 view. COMPARISON: CR XR chest 1V portable [id number] 05/05/2022 5:00 PM FINDINGS: Lungs: The lungs are clear. Pleural spaces: Unremarkable. No pleural effusion. No pneumothorax. Heart/Mediastinum: Unremarkable. No cardiomegaly. Bones/joints: Unremarkable. No acute fracture is seen XR/XR chest 1V portable [id number] IMPRESSION: No acute cardiopulmonary abnormality.
[2022-06-30] MEDS: ondansetron 2 mg/ML SDV 2 mL 4 MG IVP (18:29)
[2022-06-30] MEDS: buprenorphine-naloxone 4-1 mg Film 4 EACH SUBLINGUAL (18:33)
[2022-06-30 18:34] LABS: Basophils % 0.4 %; Eosinophils # 0.1 10^3/uL (0.0-0.8); Eosinophils % 0.8 %; Hematocrit 40.7 % (42.0-52.0); Hemoglobin 13.5 g/dL (11.7-16.6); Lymphocytes # 1.6 10^3/uL (0.8-4.8); Lymphocytes % 15.3 %; Mean Corpuscular HGB Conc 33.2 g/dL (30.0-36.0); Mean Corpuscular Hemoglobin 28.8 pg (28.0-34.0); Mean Corpuscular Volume 86.8 fl (80-94); Mean Platelet Volume 8.3 fL (7.4-10.4); Monocytes # 0.9 10^3/uL (0.2-0.9); Monocytes % 8.7 %; Neutrophils # 7.72 10^3/uL (1.8-7.7); Neutrophils % 74.4 %; Nucleated Red Blood Cells % 0 %; Platelet Count 160 10^3/cmm (130-400); Red Blood Count 4.69 10^6/uL (4.1-5.3); Red Cell Distribution Width 13.2 % (12.1-15.1); White Blood Count 10.4 10^3/uL (4.0-10.0)
[2022-06-30 18:40] LABS: Add Urine Microscopic? YES; Amorphous Sediment Urine 3+ /hpf; Bacteria Urine TRACE /hpf; Bilirubin Urine Neg (Negative); Blood Urine Neg (Negative); Glucose Urine UA Norm (Normal); Hyaline Casts Urine 0-4 /lpf; Ketones Urine Negative (Negative); Leukocyte Esterase Urine Negative (Negative); Mucus Urine TRACE /hpf; Nitrate Urine Negative (Negative); Protein Urine Neg (Negative); RBC Urine 0-4 /hpf (0-2); Squamous Epithelial Cell Urine 0-4 /hpf (0-5); Sulfosalicylic Acid Urine Positive (Negative); Urine Appearance Cloudy (CLEAR); Urine Color Yellow (Yellow); Urobilinogen Urine Norm (Negative); WBC Urine 0-4 /hpf (0-5); pH Urine 8 (5-7)
[2022-06-30 18:41] LABS: Add Urine Culture? No; Amphetamines Screen Urine Positive (Negative); Barbiturates Screen Urine Negative (Negative); Benzodiazepines Screen Urine Negative (Negative); Coarse Granular Casts Urine RARE /lpf; Cocaine Screen Urine Negative (Negative); Opiate Screen Urine Positive (Negative); PCP Screen Urine Negative (Negative); THC Screen Urine Negative (Negative)
--- NOTE | 2022-06-30 18:41 | PC.NURSE ---
pt reported to [facility] that he snorted fentynal in the bathroom while dressing out. nurse was notified, physician immediately notified and while rn in room obtaining vitals pt became unresponsive,. help was called to room, several rns and physicians responded, cpr was started, pt was bagged and received narcan. pt shortly after became alert and responsive. placed on monitor. 03/13 sitter present.
[2022-06-30 19:10] LABS: Alanine Aminotransferase 25 U/L (0-41); Alkaline Phosphatase 75 U/L (40-130); Anion Gap 13.9 (5-19); Aspartate Amino Transferase 24 U/L (0-40); Blood Urea Nitrogen 11 mg/dL (6-20); Calcium 8.9 mg/dL (8.5-10.5); Carbon Dioxide 26 mmol/L (22-29); Chloride 103 mmol/L (98-107); Globulin 3.8 g/dL (1.3-4.6); Glomerular Filtration Rate 74.5 mL/min (90-130); Glucose 116 mg/dL (65-115); Osmolality Calculated 288 mOsm/kg (285-295); Potassium 3.9 mmol/L (3.5-5.1); Sodium 139 mmol/L (136-145); Thyroid Stimulating Hormone 2.09 uIU/mL (0.27-4.20); Total Bilirubin 0.4 mg/dL (0.15-1.2); Total Protein 7.8 g/dL (6.6-8.7)
[2022-06-30 19:13] LABS: Acetaminophen < 5.0 ug/mL (10-30); Alcohol Level < 10 mg/dL (0-10); Salicylate < 0.3 mg/dL (3-10)
[2022-06-30 19:20] LABS: SARS Covid-2 Antigen negative (Negative)
--- NOTE | 2022-06-30 20:58 | PC.NURSE ---
06/30/22 at 2044 96 hour Hold Patient Rights have been read to patient & a copy of the same given to him. Patient is agreeable & verbally acknowledges understanding of Patient Rights.
--- NOTE | 2022-06-30 22:25 | PC.NURSE ---
Pt vitals continued to be monitored q 15min since shift change at 1900. Pt has been calm and cooperative. a/o x 4. one on one SItter at doorway has not left her position and reports no behaviors. Report called to floor prior to transfer.
[2022-06-30] MEDS: ibuprofen 600 mg Tablet PO (23:46)
[2022-07-01 06:00] VITALS: BP 108/62; PULSE 84; RESP 16; O2SAT 98
[2022-07-01] MEDS: buprenorphine-naloxone 4-1 mg Film 2 EACH SUBLINGUAL ×2 (08:45→17:11)
--- NOTE | 2022-07-01 09:00 | PC.OT ---
OT Eval Held - Occupational therapy evaluation held on this day until patient is more appropriate for full participation in assessment process.
--- NOTE | 2022-07-01 13:00 | W.PM.NPUH&PS ---
Providers/Chief Complaint Admitting Physician: Jin Menendez MD Chief Complaint: SI HPI NPU History of Present Illness Baldemar Thomas is a 37 year old male who presented to the emergency department with the following report: Chief Complaint: Psychiatric Symptoms Stated Complaint: SI Time Seen by Provider: 06/30/22 17:21 History of Present Illness: Patient with an extensive history of drug use and Tourette's syndrome presents to the emergency department with family due to suicidal ideation over the last several months with multiple suicide attempts over the last few days. Patient states that he has been on and off of drugs since he was 24 starting with snorting oxycodone and then escalating to smoking heroin and then injecting heroin. He has had multiple periods of sobriety, but over the past year has significantly increased his drug use mostly fentanyl, black tar heroin, or oxycodone via IV injection into his left antecubital vein. Patient states that he uses $20-$60 worth of drugs per day via IV injection. He states multiple recent stressors including getting from his ex- and being unable to afford living in [facility] where his children are located and moving here to [place]. He endorses a suicide attempt 4 days ago by running into the highway trying to get hit by a car. He also endorses a separate suicide attempt 2 days ago intentionally overdosing on fentanyl, however the hannah he was using with gave him Narcan. He states that while he has had suicidal ideation over the last several months he has never attempted suicide aside from these 2 times. He states that over the past week he has been taking excessive and unnecessary risks and has been ambivalent to dying including driving at 120 miles an hour. Patient does endorse desire to hurt other people, not specifically to kill them. He states that he does not have a specific target but looks for people that he can justify hurting while he is hanging out at bars, specifically men who are abusing women or bullies. Patient denies any auditory hallucinations, however he does endorse visual hallucinations of the gram reaper while he is laying in bed at night. Patient denies any prior suicide attempts, prior inpatient or outpatient psychiatric care, however he has been in an outpatient addiction center in the past. He states that he was previously on Subutex 8 mg twice daily with prolonged sobriety however he lost his medication and never got it refilled. Patient states that aside from opiates he uses methamphetamine and cocaine occasionally especially in combination with opiates. He denies any marijuana use because he is on probation and is concerned that we will be detected on a drug screen. He states that he smokes half a pack of cigarettes per day which is started over the last year, and drinks alcohol 6 occasionally for social situations only. No other modifying factors, no other associated symptoms. Associated symptoms: Deny delusions The patient was admitted to the neuropsychiatric unit for definitive treatment of those issues. He presents today reporting he does not have allergies to medications and is not currently taking psychiatric medications. He presents to the psychiatric unit secondary to using drugs to get high but accidentally overdosing. He has never been psychiatrically hospitalized, has not received outpatient services and has not been on psychiatric medications. He lated reported he had been on Klonopin and Metadate. He reports tobacco use on and off for the past 5 years at a half pack a day, alcohol occasionally, marijuana in the past which stopped mostly when he was 19 years old, opiates daily and benzodiazepines which he began using around 24 years old, methamphetamine sometimes and cocaine every once in a while. He has never been to drug and alcohol treatment, has received 3 DUIs the last time of which was 2019, and has a felony for possession and distribution. He reports several days ago he had been feeling suicidal but denies feeling suicidal the day he was brought into the psychiatric unit. He reports he has been struggling with where he is at in life as he wanted to be more present in his children?s lives. He reports he recently did 30 days of his 120 days in long-term and had completed a yazdanism program which was reported to help with reducing his long-term time but did not end up doing so for him. He lost 2 jobs during this period and he had fired his claims adjuster as he did not trust him as the claims adjuster was also drinking and driving. He endorses low mood and feeling depressed with where he is at. He is currently and his children live in [place] and he wants to get down there to be with them. He endorses problems with sleep, low mood, passive wish and suicidal ideation the other day but not before. He reports he has anxiety due to his situation with his work and the long-term time in addition to not being able to live with his grandmother and essentially being homeless. He reports that he had originally had a child first with another girl and the sherrif had told him to leave town. He left and came back only when he had to at which point he endorses being threatened repeatedly and that his aunt was recently threatened that he has to get out of town. He wants to get a claims adjuster to deal with the situation as he does not want it involving his family. Psychiatric History: As above. Substance Abuse History: As above. Family History: He reports bipolar disorder on his father?s side of the family and is unsure of his mother?s side of the family, addiction issues on his father?s side and suicide completion of his great uncle. Developmental History: He denies any issues with his or , learned to walk and talk and met his developmental milestones on time and denies any need for speech therapy, learning support, emotional support or special education classes. Psychosocial History: He reports his parents were together when he was born and split after. He has a younger brother who is a product of the same union, his mother has 3 additional children and his father has 1 additional daughter. He reports he struggled during his childhood and was around drug use a lot of the time though he was taken care of with his grandparents. He denies emotional, sexual or physical abuse during his childhood. He denies CYS involvement. He reports being triggered by people being hurt badly but denies flashbacks. He graduated high school and did some college. He endorses being heterosexual with his longest relationship being 7 to 8 years. He has been once and once, has 3 biological children, has never been in the and denies a holiness belief system. 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 He was living with his grandmother and her friend but cannot return there. Legal History: He has been to long-term 3 to 4 times the longest time of which was 30 days. Medical History: He endorses having been diagnosed with tourettes and adhd. He had surgery on his left shoulder. Meds NPU Home Medications Medication Instructions Recorded Confirmed Last Taken Type fentanyl See Rx Instructions .Route .COMPLEX 06/30/22 06/30/22 Unknown History Allergies Allergy/AdvReac Type Severity Reaction Status Date / Time No Known Allergies Allergy Verified 06/05/19 23:53 PFS NPU PFS: Medical History (Updated 07/01/22 @ 19:58 by Jin Menendez MD) No significant past medical history Surgical History (Updated 05/05/22 @ 16:58 by Jaylon Ramos MD) No significant past surgical history Social History Smoking and tobacco status: current every day smoker Mental Status Exam MSE Comments: This is a well nourished, well developed, white male with hospital scrubs on with adequate grooming and limited eye contact. No abnormal movements except for psychomotor retardation. Cooperative with exam in mild distress. Speech was normal rate and volume. Mood described hungry and glad to be sleeping, affect is congruent and subdued. Thought process, organized. Thought content: patient denies suicidal or homicidal ideation, endorses paranoia and paranoid delusions noted, and denies any auditory or visual hallucinations. Attention and concentration are intact and memory appeared reliable but none were formally tested. He is alert and oriented times three. Insight is limited. Judgement is impaired. Impulse control is impaired. Vitals/I&O/Wt Last Vital Signs Temp 98.2 F 06/30/22 17:22 Pulse 84 07/01/22 06:00 Resp 16 07/01/22 06:00 BP 108/62 07/01/22 06:00 Pulse Ox 98 07/01/22 06:00 O2 Del Method Room Air 07/01/22 06:00 Weight last 48 hrs Weight 86.183 kg Data NPU 06/30/22 18:25 06/30/22 18:25 A&P Assessment and plan (1) Suicide attempt by drug overdose: (2) Suicidal ideation: (3) Opioid use disorder, severe, dependence: (4) Major depressive disorder: Plan This is a 37 year old white male with a history of opiate, cocaine and methamphetamine use and genetic loading for mental health, addiction and lethality issues who presents after a recent accidental overdose reporting he was suicidal a few days ago but was doing better the day he came in open to starting medications at this time. 1. Continue current medications. Start Prozac 20 mg p.o. daily. 2. Encourage individual, group and milieu therapy 3. Continue q-15 minute check for safety 4. Recommend sober living treatment at the highest level of care to which the patient is willing to commit. Involuntary Hold Information 96 Hour Hold: 96 Hour Involuntary Admission: Yes 96 Hour Hold Ending Date: 07/06/22 96 Hour Hold Ending Time: 20:23 Attestations NPU Medical Necessity Statement*: Inpatient hospitalization is medically necessary and the clinically appropriate intervention at this time. We will monitor medications and make changes as indicated. Patient will be in the hospital for over two midnights. Likely length of stay is three to five days. Coding Level of Care Code Acute Code for g Fwd Diagnoses Suicide attempt by drug overdose T50.902A Suicidal ideation R45.851 Opioid use disorder, severe, dependence F11.20 Major depressive disorder F32.9
[2022-07-01 14:00] VITALS: BP 120/64; PULSE 77; RESP 16; TEMP 36.4; O2SAT 100
[2022-07-01] MEDS: fluoxetine 20 mg Capsule PO (15:31)
[2022-07-01 22:00] VITALS: BP 116/74; PULSE 88; RESP 16; TEMP 36.8; O2SAT 98
[2022-07-02] MEDS: ibuprofen 600 mg Tablet PO (02:34)
[2022-07-02 06:00] VITALS: RESP 15
[2022-07-02] MEDS: fluoxetine 20 mg Capsule PO (08:41)
[2022-07-02] MEDS: buprenorphine-naloxone 4-1 mg Film 2 EACH SUBLINGUAL ×2 (08:41→18:07)
--- NOTE | 2022-07-02 08:50 | P.NPUPN_ITS ---
Subjective NPU Subjective: Patient presented today reporting that he feels a little better than yesterday. He reports that the Prozac has not caused any notable side effects. We discussed sober living treatment and needing the social work team on Monday to assist in finding appropriate program for him. He reports he is eating okay and starting to sleep better. Mental Status Exam MSE Comments: This is a well nourished, well developed, white male with hospital scrubs on with adequate grooming and limited eye contact. No abnormal movements except for psychomotor retardation. Cooperative with exam in mild distress. Speech was normal rate and volume. Mood described as okay, affect is congruent and subdued. Thought process, organized. Thought content: patient denies suicidal or homicidal ideation, endorses paranoia and paranoid delusions noted, and denies any auditory or visual hallucinations. Attention and concentration are intact and memory appeared reliable but none were formally tested. He is alert and orie nted times three. Insight is limited. Judgement is impaired. Impulse control is impaired. Vitals/I&O/Wt Last Vital Signs Temp 98.2 F 07/01/22 22:00 Pulse 88 07/01/22 22:00 Resp 15 07/02/22 06:00 BP 116/74 07/01/22 22:00 Pulse Ox 98 07/01/22 22:00 O2 Del Method Room Air 07/01/22 22:00 Weight last 48 hrs Weight 86.183 kg Data NPU 06/30/22 18:25 06/30/22 18:25 A&P Assessment and plan (1) Suicide attempt by drug overdose: (2) Suicidal ideation: (3) Opioid use disorder, severe, dependence: (4) Major depressive disorder: Plan This is a 37 year old white male with a history of opiate, cocaine and methamphetamine use and genetic loading for mental health, addiction and lethality issues who presents after a recent accidental overdose reporting he was suicidal a few days ago but was doing better the day he came in open to starting medications at this time. 1. Continue current medications. Started Prozac 20 mg p.o. daily. 2. Encourage individual, group and milieu therapy 3. Continue q-15 minute check for safety 4. Recommend sober living treatment at the highest level of care to which the patient is willing to commit. Involuntary Hold Information 96 Hour Hold: 96 Hour Involuntary Admission: Yes 96 Hour Hold Ending Date: 07/06/22 96 Hour Hold Ending Time: 20:23 Attestations NPU Medical Necessity Statement*: Inpatient hospitalization is medically necessary and the clinically appropriate intervention at this time. We will monitor medications and make changes as indicated. Likely length of stay is three to five days. Coding Level of Care Code Acute Code for [facility] Fwd Diagnoses Suicide attempt by drug overdose T50.902A Suicidal ideation R45.851 Opioid use disorder, severe, dependence F11.20 Major depressive disorder F32.9
[2022-07-02 14:00] VITALS: BP 98/68; PULSE 93; RESP 16; TEMP 36.4; O2SAT 96
[2022-07-02 22:00] VITALS: BP 133/81; PULSE 116; RESP 18; TEMP 36.7; O2SAT 96
[2022-07-03] MEDS: ibuprofen 600 mg Tablet PO (04:48)
[2022-07-03 06:00] VITALS: RESP 16
[2022-07-03] MEDS: fluoxetine 20 mg Capsule PO (08:24)
[2022-07-03] MEDS: buprenorphine-naloxone 4-1 mg Film 2 EACH SUBLINGUAL ×2 (08:24→18:44)
--- NOTE | 2022-07-03 11:04 | P.NPUPN_ITS ---
Subjective NPU Subjective: Patient presented today reporting that things are going okay. He denies any significant issues with the medication. He reports he has been doing a lot of thinking and is just disappointed with himself overall. We discussed the treatment team convening tomorrow and looking at different options for sober living treatment. Mental Status Exam MSE Comments: This is a well nourished, well developed, white male with hospital scrubs on with adequate grooming and limited eye contact. No abnormal movements except for psychomotor retardation. Cooperative with exam in mild distress. Speech was norm al rate and volume. Mood described as okay, affect is congruent and slightly subdued. Thought process, organized. Thought content: patient denies suicidal or homicidal ideation, endorses paranoia and paranoid delusions noted, and denies any auditory or visual hallucinations. Attention and concentration are intact and memory appeared reliable but none were formally tested. He is alert and oriented times three. Insight is limited. Judgement is improving. Impulse control is impaired. Vitals/I&O/Wt Last Vital Signs Temp 98.1 F 07/02/22 22:00 Pulse 116 H 07/02/22 22:00 Resp 16 07/03/22 06:00 BP 133/81 07/02/22 22:00 Pulse Ox 96 07/02/22 22:00 O2 Del Method Room Air 07/02/22 22:00 Weight last 48 hrs Weight 89.046 kg Data NPU 06/30/22 18:25 06/30/22 18:25 A&P Assessment and plan (1) Suicide attempt by drug overdose: (2) Suicidal ideation: (3) Opioid use disorder, severe, dependence: (4) Major depressive disorder: Plan This is a 37 year old white male with a history of opiate, cocaine and methamphetamine use and genetic loading for mental health, addiction and lethality issues who presents after a recent accidental overdose reporting he was suicidal a few days ago but was doing better the day he came in open to starting medications at this time. 1. Continue current medications. Started Prozac 20 mg p.o. daily. 2. Encourage individual, group and milieu therapy 3. Continue q-15 minute check for safety 4. Recommend sober living treatment at the highest level of care to which the patient is willing to commit. Involuntary Hold Information 96 Hour Hold: 96 Hour Involuntary Admission: Yes 96 Hour Hold Ending Date: 07/06/22 96 Hour Hold Ending Time: 20:23 Attestations NPU Medical Necessity Statement*: Inpatient hospitalization is medically necessary and the clinically appropriate intervention at this time. We will monitor medications and make changes as indicated. Likely length of stay is 2-4 days. Coding Level of Care Code Acute Code for [facility]g Fwd Diagnoses Suicide attempt by drug overdose T50.902A Suicidal ideation R45.851 Opioid use disorder, severe, dependence F11.20 Major depressive disorder F32.9
[2022-07-03 14:00] VITALS: BP 110/73; PULSE 74; RESP 16; TEMP 36.6; O2SAT 98
[2022-07-03 19:36] VITALS: BP 122/72; PULSE 66; RESP 18; TEMP 36.5; O2SAT 99
[2022-07-04 06:00] VITALS: BP 118/72; PULSE 59; RESP 18; TEMP 36.9; O2SAT 95
[2022-07-04] MEDS: polyethylene glycol 3350 Pkt 17 gm PO ×2 (09:30→17:58)
[2022-07-04] MEDS: buprenorphine-naloxone 4-1 mg Film 2 EACH SUBLINGUAL ×2 (09:30→17:58)
[2022-07-04] MEDS: fluoxetine 20 mg Capsule PO (10:49)
[2022-07-04 14:00] VITALS: BP 123/71; PULSE 70; RESP 16; TEMP 37.1; O2SAT 98
--- NOTE | 2022-07-04 14:13 | W.PM.NPUPNS ---
Subjective NPU Subjective: Patient presented today reporting that he is doing okay but having some frustration about not having spoken to the social work team yet. He is very interested in getting connected with a sober living program and reports that he is doing fine on the medication but is feeling very tired to do something better and afraid that he might lose his energy if he does not get the assistance he needs in connecting with some program. He denies any side effects with the Prozac. Mental Status Exam MSE Comments: This is a well nourished, well developed, white male with hospital scrubs on with adequate grooming and limited eye contact. No abnormal movements except for psychomotor retardation. Cooperative with exam in mild distress. Speech was normal rate and volume. Mood described as fine but frustrated, affect is congruent and slightly subdued. Thought process, organized. Thought content: patient denies suicidal or homicidal ideation, endorses paranoia and paranoid delusions noted, and denies any auditory or visual hallucinations. Attention and concentration are intact and memory appeared reliable but none were formally tested. He is alert and oriented times three. Insight is limited. Judgement is improving. Impulse control is limited. Vitals/I&O/Wt Last Vital Signs Temp 98.7 F 07/04/22 14:00 Pulse 70 07/04/22 14:00 Resp 16 07/04/22 14:00 BP 123/71 07/04/22 14:00 Pulse Ox 98 07/04/22 14:00 O2 Del Method Room Air 07/04/22 14:00 Weight last 48 hrs Weight 89.046 kg Data NPU 06/30/22 18:25 06/30/22 18:25 A&P Assessment and plan (1) Suicide attempt by drug overdose: (2) Suicidal ideation: (3) Opioid use disorder, severe, dependence: (4) Major depressive disorder: Plan This is a 37 year old white male with a history of opiate, cocaine and methamphetamine use and genetic loading for mental health, addiction and lethality issues who presents after a recent accidental overdose reporting he was suicidal a few days ago but was doing better the day he came in open to starting medications at this time. 1. Continue current medications. Started Prozac 20 mg p.o. daily. 2. Encourage individual, group and milieu therapy 3. Continue q-15 minute check for safety 4. Recommend sober living treatment at the highest level of care to which the patient is willing to commit. Involuntary Hold Information 96 Hour Hold: 96 Hour Involuntary Admission: Yes 96 Hour Hold Ending Date: 07/06/22 96 Hour Hold Ending Time: 20:23 Attestations NPU Medical Necessity Statement*: Inpatient hospitalization is medically necessary and the clinically appropriate intervention at this time. We will monitor medications and make changes as indicated. Likely length of stay is 1-3 days. Coding Level of Care Code Acute Code for [facility] Fwd Diagnoses Suicide attempt by drug overdose T50.902A Suicidal ideation R45.851 Opioid use disorder, severe, dependence F11.20 Major depressive disorder F32.9
[2022-07-04 20:28] VITALS: BP 128/75; PULSE 67; RESP 18; TEMP 36.5; O2SAT 97
[2022-07-05 06:00] VITALS: BP 115/74; PULSE 58; RESP 18; TEMP 36.6; O2SAT 97
[2022-07-05] MEDS: fluoxetine 20 mg Capsule PO (08:30)
[2022-07-05] MEDS: polyethylene glycol 3350 Pkt 17 gm PO ×2 (08:31→17:51)
[2022-07-05] MEDS: buprenorphine-naloxone 4-1 mg Film 2 EACH SUBLINGUAL ×2 (08:31→17:51)
[2022-07-05 14:00] VITALS: BP 122/79; PULSE 72; RESP 16; TEMP 36.6; O2SAT 98
--- NOTE | 2022-07-05 17:40 | P.NPUPN_ITS ---
Subjective NPU Subjective: Patient presented today reporting that he is tolerating the Prozac fine. He is working with social work team on a program in [place] as a sober living treatment. We restarted him and determining when they would be able to pick him up because the program picks people up from inpatient facilities. We discussed possibly discharge in the next 48 hours. Mental Status Exam MSE Comments: This is a well nourished, well developed, white male with hospital scrubs on with adequate grooming and limited eye contact. No abnormal movements except for psychomotor retardation. Cooperative with exam in mild distress. Speech was normal rate and volume. Mood described as okay, affect is congruent and slightly subdued. Thought process, organized. Thought content: patient denies suicidal or homicidal ideation, endorses paranoia and paranoid delusions noted, and denies any auditory or visual hallucinations. Attention and concentration are intact and memory appeared reliable but none were formally tested. He is alert and oriented times three. Insight is limited. Judgement is improving. Impulse contr ol is limited. Vitals/I&O/Wt Last Vital Signs Temp 97.9 F 07/05/22 19:51 Pulse 82 07/05/22 19:51 Resp 18 07/05/22 19:51 BP 111/71 07/05/22 19:51 Pulse Ox 93 07/05/22 19:51 O2 Del Method Room Air 07/05/22 19:51 Data NPU 06/30/22 18:25 06/30/22 18:25 A&P Assessment and plan (1) Suicide attempt by drug overdose: (2) Suicidal ideation: (3) Opioid use disorder, severe, dependence: (4) Major depressive disorder: Plan This is a 37 year old white male with a history of opiate, cocaine and methamphetamine use and genetic loading for mental health, addiction and lethality issues who presents after a recent accidental overdose reporting he was suicidal a few days ago but was doing better the day he came in open to sta rting medications at this time. 1. Continue current medications. Started Prozac 20 mg p.o. daily. 2. Encourage individual, group and milieu therapy 3. Continue q-15 minute check for safety 4. Recommend sober living treatment at the highest level of care to which the patient is willing to commit. Involuntary Hold Information 96 Hour Hold: 96 Hour Involuntary Admission: Yes 96 Hour Hold Ending Date: 07/06/22 96 Hour Hold Ending Time: 20:23 Attestations NPU Medical Necessity Statement*: Inpatient hospitalization is medically necessary and the clinically appropriate intervention at this time. We will monitor medications and make changes as indicated. Likely length of stay is 1-2 days. Coding Level of Care Code Acute Code for [facility]g Fwd Diagnoses Suicide attempt by drug overdose T50.902A Suicidal ideation R45.851 Opioid use disorder, severe, dependence F11.20 Major depressive disorder F32.9
[2022-07-05 19:51] VITALS: BP 111/71; PULSE 82; RESP 18; TEMP 36.6; O2SAT 93
[2022-07-05] MEDS: ibuprofen 600 mg Tablet PO (20:25)
[2022-07-06 06:00] VITALS: RESP 16
[2022-07-06] MEDS: buprenorphine-naloxone 4-1 mg Film 2 EACH SUBLINGUAL (10:48)
[2022-07-06] MEDS: fluoxetine 20 mg Capsule PO (10:49)
--- NOTE | 2022-07-06 12:47 | P.NPUDS_ITS ---
Diagnoses at Discharge Discharge Diagnosis (1) Suicide attempt by drug overdose: Status: Acute (2) Suicidal ideation: Status: Resolved (3) Opioid use disorder, severe, dependence: Status: Acute (4) Major depressive disorder: Status: Acute Reason for Visit Reason for Visit: SI Brief History: History of Present Illness Baldemar Thomas is a 37 year old male who presented to the emergency department with the following report: Chief Complaint: Psychiatric Symptoms Stated Complaint: SI Time Seen by Provider: 06/30/22 17:21 History of Present Illness:?? Patient with an extensive history of drug use and Tourette's syndrome presents to the emergency department with family due to suicidal ideation over the last several months with multiple suicide attempts over the last few days.? Patient states that he has been on and off of drugs since he was 24 starting with snorting oxycodone and then escalating to smoking heroin and then injecting heroin.? He has had multiple periods of sobriety, but over the past year has significantly increased his drug use mostly fentanyl, black tar heroin, or oxycodone via IV injection into his left antecubital vein.? Patient states that he uses $20-$60 worth of drugs per day via IV injection.? He states multiple recent stressors including getting from his ex- and being unable to afford living in [facility] where his children are located and moving here to [place].? He endorses a suicide attempt 4 days ago by running into the highway trying to get hit by a car.? He also endorses a separate suicide attempt 2 days ago intentionally overdosing on fentanyl, however the hannah he was using with gave him Narcan.? He states that while he has had suicidal ideation over the last several months he has never attempted suicide aside from these 2 times.? He states that over the past week he has been taking excessive and unnecessary risks and has been ambivalent to dying including driving at 120 miles an hour.? Patient does endorse desire to hurt other people, not specifically to kill them.? He states that he does not have a specific target but looks for people that he can justify hurting while he is hanging out at bars, specifically men who are abusing women or bullies.? Patient denies any auditory hallucinations, however he does endorse visual hallucinations of the gram reaper while he is laying in bed at night.? Patient denies any prior suicide attempts, prior inpat ient or outpatient psychiatric care, however he has been in an outpatient addiction center in the past.? He states that he was previously on Subutex 8 mg twice daily with prolonged sobriety however he lost his medication and never got it refilled.? Patient states that aside from opiates he uses methamphetamine and cocaine occasionally especially in combination with opiates.? He denies any marijuana use because he is on probation and is concerned that we will be detected on a drug screen.? He states that he smokes half a pack of cigarettes per day which is started over the last year, and drinks alcohol 6 occasionally for social situations only.? No other modifying factors, no other associated symptoms. ? Associated symptoms: Deny delusions The patient was admitted to the neuropsychiatric unit for definitive treatment of those issues. He presents today reporting he does not have allergies to medications and is not currently taking psychiatric medications. He presents to the psychiatric unit secondary to using drugs to get high but accidentally overdosing. He has never been psychiatrically hospitalized, has not received outpatient services and has not been on psychiatric medications. He lated reported he had been on Klonopin and Metadate. He reports tobacco use on and off for the past 5 years at a half pack a day, alcohol occasionally, marijuana in the past which stopped mostly when he was 19 years old, opiates daily and benzodiazepines which he began using around 24 years old, methamphetamine sometimes and cocaine every once in a while. He has never been to drug and alcohol treatment, has received 3 DUIs the last time of which was 2019, and has a felony for possession and distribution. He reports several days ago he had been feeling suicidal but denies feeling suicidal the day he was brought into the psychiatric unit. He reports he has been struggling with where he is at in life as he wanted to be more present in his children?s lives. He reports he recently did 30 days of his 120 days in correction and had completed a pentecostalism program which was reported to help with reducing his correction time but did not end up doing so for him. He lost 2 jobs during this period and he had fired his community pharmacist as he did not trust him as the community pharmacist was also drinking and driving. He endorses low mood and feeling depressed with where he is at. He is currently and his children live in [place] and he wants to get down there to be with them. He endorses problems with sleep, low mood, passive wish and suicidal ideation the other day but not before. He reports he has anxiety due to his situation with his work and the correction time in addition to not being able to live with his grandmother and essentially being homeless. He reports that he had originally had a child first with another girl and the sherrif had told him to leave town. He left and came back only when he had to at which point he endorses being threatened repeatedly and that his aunt was recently threatened that he has to get out of town. He wants to get a community pharmacist to deal with the situation as he does not want it involving his family. Psychiatric History: As above. Substance Abuse History: As above. Family History: He reports bipolar disorder on his father?s side of the family and is unsure of his mother?s side of the family, addiction issues on his father?s side and suicide completion of his great uncle. Developmental History: He denies any issues with his or , learned to walk and talk and met his developmental milestones on time and denies any need for speech therapy, learning support, emotional support or special education classes. Psychosocial History: He reports his parents were together when he was born and split after. He has a younger brother who is a product of the same union, his mother has 3 additional children and his father has 1 additional daughter. He reports he struggled during his childhood and was around drug use a lot of the time though he was taken care of with his grandparents. He denies emotional, sexual or physical abuse during his childhood. He denies [employer] involvement. He reports being triggered by people being hurt badly but denies flashbacks. He graduated high school and did some college. He endorses being heterosexual with his longest relationship being 7 to 8 years. He has been once and once, has 3 biological children, has never been in the and denies a gnosticism belief system. 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 He was living with his grandmother and her friend but cannot return there. Legal History: He has been to correction 3 to 4 times the longest time of which was 30 days. Medical History: He endorses having been diagnosed with tourettes and adhd. He had surgery on his left shoulder. Hospital Course Hospital Course He slowly acclimated to the individual, group and milieu therapies provided.? He presented with addiction and depression. Decided that he wanted to go to rehab but no state sponsored rehabs were available. We started Prozac 20 mg p.o. every morning. He was able to work with the treatment team to assist with inpatient resources. A facility was procured however they did not allow to get medications so he discontinued the Prozac. He had significant improvement and was able to contract for safety, outside the hospital prior to discharge.? During the hospitalization, patient had routine laboratory studies which were within normal limits.? Additionally there was a general medical evaluation which was also within normal limits and revealed no new acute processes. At the time of discharge, he denied psychosis or lethality.? Mood and anxiety were back to baseline.? Patient endorsed a plan to avoid all drugs of abuse and follow-up with the aftercare recommendations of the treatment team.? Patient was evaluated and deemed to be absent credible lethality, and had achieved the max imum benefit from an inpatient hospitalization, so was discharged.? Involuntary Hold Information 96 Hour Hold: 96 Hour Involuntary Admission: Yes 96 Hour Hold Ending Date: 07/06/22 96 Hour Hold Ending Time: 20:23 Mental Status Exam MSE Comments: This is a well nourished, well developed, white male with hospital scrubs on with adequate grooming and limited eye contact. No abnormal movements except for psychomotor retardation. Cooperative with exam in mild distress. Speech was normal rate and volume. Mood described as okay, affect is congruent and slightly subdued. Thought process, organized. Thought content: patient denies suicidal or homicidal ideation, endorses paranoia but no delusions noted, and denies any auditory or visual hallucinations. Attention and concentration are intact and memory appeared reliable but none were formally tested. He is alert and oriented times three. Insight is limited. Judgement is improving. Impulse control is limited. Discharge Data Studies Completed and Pending: Completed Studies During Hospitalization Category Date Time Status CXRP [XR chest 1V portable [id number]] S tat Exams 06/30/22 18:00 Completed Radiology Impressions Chest X-Ray 06/30/22 18:00 IMPRESSION: No acute cardiopulmonary abnormality. Laboratory Results WBC 10.4 10^3/uL (4.0 -10.0) H 06/30/22 18:25 RBC 4.69 10^6/uL (4.1 -5.3) 06/30/22 18:25 Hgb 13.5 g/dL (11.7-1 6.6) 06/30/22 18: Hct 40.7 % (42.0-52.0 ) L 06/30/22 18: MCV 86.8 fl (80-94) 06/30/22 18:25 MCH 28.8 pg (28.0-34. 0) 06/30/22 18: MCHC 33.2 g/dL (30.0-3 6.0) 06/30/22 18: RDW 13.2 % (12.1-15.1 ) 06/30/22 18: Plt Count 160 10^3/cmm (130 -400) 06/30/22 18: MPV 8.3 fL (7.4-10.4) 06/30/22 18:25 Neut % (Auto) 74.4 % 06/30/22 18:25 Lymph % (Auto) 15.3 % 06/30/22 18: [place] % (Auto) 8.7 % 06/30/22 18: Eos % (Auto) 0.8 % 06/30/22 18: Baso % (Auto) 0.4 % 06/30/22 18: Neut # (Auto) 7.72 10^3/uL (1.8 -7.7) H 06/30/22 18: Lymph # (Auto) 1.6 10^3/uL (0.8- 4.8) 06/30/22 18:25 [place] # (Auto) 0.9 10^3/uL (0.2- 0.9) 06/30/22 18: Eos # (Auto) 0.1 10^3/uL (0.0- 0.8) 06/30/22 18: Baso # (Auto) 0.0 10^3/uL (0.0- 0.1) 06/30/22 18: Nucleated RBC % (a uto) 0 % 06/30/22 18: Nucleated RBCs # 0.0 /100WBC 06/30/22 18:25 Sodium 139 mmol/L (136-1 45) 06/30/22 18:25 Potassium 3.9 mmol/L (3.5-5 .1) 06/30/22 18:25 Chloride 103 mmol/L (98-10 7) 06/30/22 18:25 Carbon Dioxide 26 mmol/L (22-29) 06/30/22 18:25 Anion Gap 13.9 (5-19) 06/30/22 18:25 BUN 11 mg/dL (6-20) 06/30/22 18:25 Creatinine 1.1 mg/dL (0.7-1. 2) 06/30/22 18:25 GFR Calculation 74.5 mL/min (90-1 30) L 06/30/22 18:25 Glucose 116 mg/dL (65-115 ) H 06/30/22 18:25 Calculated Osmolal ity 288 mOsm/kg (285- 295) 06/30/22 18:25 Calcium 8.9 mg/dL (8.5-10 .5) 06/30/22 18:25 Total Bilirubin 0.4 mg/dL (0.15-1 .2) 06/30/22 18:25 AST 24 U/L (0-40) 06/30/22 18:25 ALT 25 U/L (0-41) 06/30/22 18:25 Alkaline Phosphata se 75 U/L (40-130) 06/30/22 18:25 Total Protein 7.8 g/dL (6.6-8.7 ) 06/30/22 18:25 Albumin 4.0 g/dL (3.5-5.2 ) 06/30/22 18:25 Globulin 3.8 g/dL (1.3-4.6 ) 06/30/22 18:25 TSH 2.09 uIU/mL (0.27 -4.20) 06/30/22 18:25 Urine Color Yellow (Yellow) 06/30/22 18:00 Urine Appearance Cloudy (CLEAR) A 06/30/22 18:00 Urine pH 8 (5-7) H 06/30/22 18:00 Ur Specific Gravit y 1.020 (1.005-1.0 30) 06/30/22 18:00 Urine Protein Neg (Negative) 06/30/22 18:00 Urine Glucose (UA) Norm (Normal) 06/30/22 18:00 Urine Ketones Negative (Negati ve) 06/30/22 18:00 Urine Blood Neg (Negative) 06/30/22 18:00 Urine Nitrate Negative (Negati ve) 06/30/22 18:00 Urine Bilirubin Neg (Negative) 06/30/22 18:00 Prot Sulfosalicyli c Acd Positive (Negati ve) 06/30/22 18:00 Urine Urobilinogen Norm mg/dL (Negat mihir) 06/30/22 18:00 Ur Leukocyte Mayra ase Negative (Negati ve) 06/30/22 18:00 Urine RBC 0-4 /hpf (0-2) H 06/30/22 18:00 Urine WBC 0-4 /hpf (0-5) H 06/30/22 18:00 Ur Squamous Epith Cells 0-4 /hpf (0-5) H 06/30/22 18:00 Amorphous Sediment 3+ /hpf 06/30/22 18:00 Urine Bacteria Trace /hpf (NONE) 06/30/22 18:00 Hyaline Casts 0-4 /lpf H 06/30/22 18:00 Coarse Granular Ca sts Rare /lpf 06/30/22 18:00 Urine Mucus Trace /hpf 06/30/22 18:00 Salicylates < 0.3 mg/dL (3-10 ) L 06/30/22 18:25 Urine Opiates Scre en Positive ng/mL (N egative) H 06/30/22 18:00 Acetaminophen < 5.0 ug/mL (10-3 0) L 06/30/22 18:25 Ur Barbiturates Sc reen Negative ng/mL (N egative) 06/30/22 18:00 Ur Phencyclidine S crn Negative ng/mL (N egative) 06/30/22 18:00 Ur Amphetamines Sc reen Positive ng/mL (N egative) H 06/30/22 18:00 U Benzodiazepines Scrn Negative ng/mL (N egative) 06/30/22 18:00 Urine Cocaine Scre en Negative ng/mL (N egative) 06/30/22 18:00 U Marijuana (THC) Screen Negative ng/mL (N egative) 06/30/22 18:00 Ethyl Alcohol < 10 mg/dL (0-10) 06/30/22 18:25 SARS-CoV-2 Ag (Rap id) negative (Negati ve) 06/30/22 18:20 Vitals: Last Vital Signs Temp 97.9 F 07/05/22 19:51 Pulse 82 07/05/22 19:51 Resp 16 07/06/22 06:00 BP 111/71 07/05/22 19:51 Pulse Ox 93 07/05/22 19:51 O2 Del Method Room Air 07/05/22 19:51 Discharge Plan Discharge Patient Disposition: Home Condition: Stable Prescriptions: No Action No Known Home Medications Discharge Orders: Discharge Order (Routine); Ordered 07/06/22 Ordered By: Jin Menendez Referrals: [facility] [Other] - 07/06/22 Discharge Diet: Regular Discharge Activity: Resume usual activity Patient Instructions: Depression (GEN), Narcotic Safety (GEN), Opioid Withdrawal (GEN), Suicide Prevention (GEN), Opioid Safety Discharge Attestations NPU Time Spent in Discharge Care*: less than 30 min Specific Discharge Activities: Specific discharge activities: educating patient, discussing with medical case manager/social workers/dc planners, documenting/other paperwork and evaluating patient/reviewing data Coding Level of Care Code Acute Chg FW DC note Diagnoses Suicide attempt by drug overdose T50.902A Suicidal ideation R45.851 Opioid use disorder, severe, dependence F11.20 Major depressive disorder F32.9
[2022-07-06 13:26] VITALS: BP 132/78; PULSE 75; RESP 16; TEMP 36.6; O2SAT 97
[2022-07-06 15:00] VITALS: BP 132/78; PULSE 75; RESP 16; TEMP 36.6; O2SAT 97
== END 2022-07-06 15:16 | disposition home or self-care (01) | DRG 881 ==
LOC: ER 20:22 → NP 23:12
PROVIDERS: Admitting Provider Psychiatry & Neurology Psychiatry; Emergency Provider Emergency Medicine; Visit Provider Psychiatry & Neurology Psychiatry
DX: F32.9 Major depressive disorder, single episode, unspecified (principal); R45.851 Suicidal ideations; F11.20 Opioid dependence, uncomplicated; F95.2 Tourette's disorder; F15.10 Other stimulant abuse, uncomplicated; F14.10 Cocaine abuse, uncomplicated; Z81.8 Family history of other mental and behavioral disorders; F90.9 Attention-deficit hyperactivity disorder, unspecified type
CPT/HCPCS: 36415; 71045; 80053; 80306; 80307; 81001; 84443; 85025; 87426; 97165; 99285; J0573; J2310; J2405

== ENCOUNTER 2022-07-25 11:23 | Outpatient (CLI) | payer BC, MEDICAID, SELFPAY ==
--- NOTE | 2022-07-25 11:47 | XRR_ITS ---
PROCEDURE INFORMATION: Exam: XR Chest Exam date and time: 07/25/2022 11:48 AM Age: 37 years old Clinical indication: Sternal or substernal pain; Patient HX: Cpr 4 weeks ago; Additional info: Sternum pain, post cpr TECHNIQUE: Imaging protocol: Radiologic exam of the chest. Views: 2 views. COMPARISON: CR (CHEST, ) 06/30/2022 6:26 PM FINDINGS: Lungs: Lungs are clear. Pleural spaces: There is no pleural effusion or pneumothorax. Heart/Mediastinum: Cardiomediastinal contours are unremarkable. Bones/joints: Bones are unremarkable. XR/XR chest 2V* [id number] IMPRESSION: No acute findings.
== END 2022-07-25 11:24 | disposition home or self-care (01) ==
PROVIDERS: Visit Provider Family Medicine
DX: M25.519 Pain in unspecified shoulder (principal)
CPT/HCPCS: 71046